=== PATIENT | female | born 1995 | race Caucasian/White ===

== ENCOUNTER 2017-09-29 08:44 | Emergency (ER) | payer OTHER ==
[2017-09-29 09:54] LABS: APPEARANCE,URINE SLIGHTLY-CLOUDY; BILIRUBIN,URINE NEGATIVE (NEGATIVE); GLUCOSE, URINE NEGATIVE (NEGATIVE); KETONES,URINE NEGATIVE (NEGATIVE); LEUKOCYTE ESTERASE,URINE NEGATIVE (NEGATIVE); NITRITE,URINE NEGATIVE (NEGATIVE); PROTEIN,URINE NEGATIVE (NEGATIVE); URINE SPECIFIC GRAVITY 1.025
--- NOTE | 2017-09-29 10:20 | ER Document Report ---
ED GI/ - General Chief Complaint: Abdominal Pain Stated Complaint: ABDOMINAL PAIN AND CRAMPING Time Seen by Provider: 09/29/17 10:09 Mode of Arrival: Ambulatory Information source: Patient TRAVEL OUTSIDE OF THE [place] IN LAST 30 DAYS: No - HPI Patient complains to provider of: Pelvic pain Onset: Other - 2 DAYS Timing/Duration: Intermittent Quality of pain: Cramping Severity at maximum: Mild Severity in ED: Mild Context: Location: Pelvis Vaginal bleeding (Compared to normal period): Spotting Menstrual period history: LMP: 08/24 : 6 Para: 2 Abortions: 3 - Related Data Allergies/Adverse Reactions: Iodinated Contrast- Oral and IV Dye [IV Dye, Iodine Containing] Allergy (Severe , Verified 09/29/17 08:54) Difficulty breathing Shellfish * [Shellfish] Allergy (Severe, Verified 09/29/17 08:54) Difficulty breathing Past Medical History - General Information source: Patient - Social History Smoking Status: Unknown if Ever Smoked Cigarette use (# per day): No Chew tobacco use (# tins/day): No Frequency of alcohol use: None Drug Abuse: None Lives with: Spouse/Significant other Family History: Reviewed & Not Pertinent Patient has suicidal ideation: No Patient has homicidal ideation: No - Medical History Medical History: Negative Renal/ Medical History: Denies: Hx Peritoneal Dialysis Psychiatric Medical History: Reports: None Past Surgical History: Reports: Hx Cholecystectomy Review of Systems - Review of Systems Constitutional: No symptoms reported EENT: No symptoms reported Cardiovascular: No symptoms reported Respiratory: No symptoms reported Gastrointestinal: Nausea. denies: Vomiting Genitourinary: See HPI Female Genitourinary: See HPI Musculoskeletal: No symptoms reported Skin: No symptoms reported Neurological/Psychological: No symptoms reported Physical Exam - Vital signs Vitals: Temp Pulse Resp BP Pulse Ox 98.7 F 96 16 127/65 H 99 09/29/17 08:47 09/29/17 08:47 09/29/17 08:47 09/29/17 08:47 09/29/17 08:47 Interpretation: Normal. No: Tachycardic, Tachypneic - General General appearance: Appears well, Alert In distress: None - HEENT Head: Normocephalic Eyes: Normal Conjunctiva: Normal Ears: Normal Nasal: Normal Mouth/Lips: Normal Mucous membranes: Normal - Respiratory Respiratory status: No respiratory distress - Cardiovascular Rhythm: Regular - Abdominal Inspection: Normal Distension: No distension - Extremities General upper extremity: Normal inspection General lower extremity: Normal inspection. No: Edema - Neurological Neuro grossly intact: Yes Cognition: Normal Orientation: AAOx4 - Psychological Associated symptoms: Normal affect, Normal mood - Skin Skin Temperature: Warm Skin Moisture: Dry Skin Color: Normal Skin Turgor: Elastic Course - Re-evaluation Re-evalutation: 09/29/17 13:32 Patient is subjectively unchanged. Results of laboratory and ultrasound studies discussed with patient. She is to seek routine follow-up in 3-4 days. - Vital Signs Vital signs: Temp Pulse Resp BP Pulse Ox 98.7 F 96 16 127/65 H 99 09/29/17 08:47 09/29/17 08:47 09/29/17 08:47 09/29/17 08:47 09/29/17 08:47 - Laboratory Result Diagrams: 09/29/17 10:19 09/29/17 10:19 Laboratory results interpreted by me: 09/29/17 09/29/17 09/29/17 08:31 10:19 10:19 RDW 14.8 H Chloride 110 H Lipase 22.2 L Beta HCG, Quant 228.36 H Urine Urobilinogen 2.0 H Urine HCG, Qual POSITIVE H Discharge - Discharge Clinical Impression: Threatened miscarriage in early Condition: Stable Disposition: HOME, SELF-CARE Instructions: Threatened Miscarriage ([facility]) Additional Instructions: REST, DRINK PLENTY OF FLUIDS. YOU MAY TAKE TYLENOL FOR PAIN CONTROL IF NEEDED. FOLLOW UP IN 3-4 DAYS FOR REPEAT HCG LEVEL. RETURN TO E.R. IF YOU GET WORSE IN ANY WAY.
[2017-09-29 10:32] LABS: ABSOLUTE EOSINOPHILS # (AUTO) 0.3 10^3/uL (0.0-0.6); ABSOLUTE LYMPHOCYTES (AUTO) 2.2 10^3/uL (0.5-4.7); ABSOLUTE MONOCYTES (AUTO) 0.6 10^3/uL (0.1-1.4); ABSOLUTE NEUT (AUTO) 4.9 10^3/uL (1.7-8.2); BASOPHILS % (AUTO) 0.6 % (0-2); EOSINOPHILS % (AUTO) 3.3 % (0-6); HEMATOCRIT 39.6 % (36.0-47.0); HEMOGLOBIN 13.5 g/dL (12.0-15.5); HGB HCT DIFFERENCE 0.9; LYMPHOCYTES % (AUTO) 27.7 % (13-45); MEAN CORPUSCULAR HEMOGLOBIN 29.3 pg (27.0-33.4); MEAN CORPUSCULAR HGB CONC 34.2 g/dL (32.0-36.0); MEAN CORPUSCULAR VOLUME 86 fl (80-97); RED BLOOD COUNT 4.62 10^6/uL (3.72-5.28); RED CELL DISTRIBUTION WIDTH 14.8 % (11.5-14.0); SEGMENTED NEUTROPHILS % (AUTO) 61.4 % (42-78)
[2017-09-29 10:51] LABS: ALANINE AMINOTRANSFERASE 23 U/L (9-52); ALBUMIN 4.5 g/dL (3.5-5.0); ALKALINE PHOSPHATASE 65 U/L (38-126); ANION GAP 11 (5-19); ASPARTATE AMINO TRANSFERASE 22 U/L (14-36); BILIRUBIN,DIRECT 0.4 mg/dL (0.0-0.4); BILIRUBIN,TOTAL 0.7 mg/dL (0.2-1.3); BLOOD UREA NITROGEN 9 mg/dL (7-20); CALCIUM 9.2 mg/dL (8.4-10.2); CARBON DIOXIDE 23 mmol/L (22-30); CHLORIDE 110 mmol/L (98-107); CREATININE RESULT 0.55 mg/dL (0.52-1.25); GLUCOSE 86 mg/dL (75-110); LIPASE 22.2 U/L (23-300); POTASSIUM 3.8 mmol/L (3.6-5.0); SODIUM 144.2 mmol/L (137-145); TOTAL PROTEIN 7.3 g/dL (6.3-8.2)
--- NOTE | 2017-09-29 12:58 | RADIOLOGY REPORT (SQ) ---
EXAM DESCRIPTION: U/S OB TRANSVAG W/DOPPLER COMPLETED DATE/TIME: 09/29/2017 12:46 pm REASON FOR STUDY: PELVIC PAIN, VAG. BLEEDING, HCG 228. COMPARISON: None. TECHNIQUE: Transvaginal static and realtime grayscale images acquired of the pelvis. Additional edmundo cted spectral and color Doppler images recorded. All images stored on PACs. bHC LIMITATIONS: None. FINDINGS: FETUS: There is no identifiable gestational sac or pole, and of course there is no cardiac motion. UTERUS: 9.9 x 6.2 x 4.9 cm. No masses or anomalies. CERVICAL LENGTH: 3 cm Closed. RIGHT ADNEXA: 3.6 x 2.8 x 2.7 cm with a cyst measuring 3.2 x 1.8 x 1.7 cm. No adnexal free fluid. No adnexal masses. LEFT ADNEXA: 2.8 x 2.3 x 1.4 cm. No adnexal free fluid. No adnexal masses. Trace amount of free fluid. FREE FLUID: None. OTHER: Endometrium measures 18 mm. IMPRESSION: No intrauterine gestation is identified. Follow-up as clinically indicated. TECHNICAL DOCUMENTATION: JOB ID: [id number] [employer]- All Rights Reserved
[2017-09-29 14:03] VITALS: BP 109/59
== END 2017-09-29 14:03 | disposition home or self-care (01) ==
LOC: ER 08:44
DX: O20.0 Threatened abortion (principal); R10.9 Unspecified abdominal pain; R10.2 Pelvic and perineal pain
CPT/HCPCS: 36415; 76817; 80053; 81001; 81025; 83690; 84702; 85025; 93976; 99284

== ENCOUNTER 2018-02-25 19:48 | Outpatient (CLI) | payer OTHER ==
[2018-02-25 20:53] LABS: APPEARANCE,URINE SLIGHTLY-CLOUDY; BILIRUBIN,URINE SMALL (NEGATIVE); GLUCOSE, URINE NEGATIVE (NEGATIVE); KETONES,URINE 20 mg/dL (NEGATIVE); LEUKOCYTE ESTERASE,URINE NEGATIVE (NEGATIVE); NITRITE,URINE NEGATIVE (NEGATIVE); PROTEIN,URINE 30 mg/dL (NEGATIVE); URINE SPECIFIC GRAVITY 1.028
[2018-02-25 20:56] LABS: COLOR,URINE YELLOW
[2018-02-25 21:22] LABS: URINE AMPHETAMINES SCREEN NEGATIVE; URINE BENZODIAZEPINES SCREEN NEGATIVE; URINE COCAINE SCREEN NEGATIVE; URINE MARIJUANA (THC) SCREEN NEGATIVE; URINE METHADONE SCREEN NEGATIVE; URINE PHENCYCLIDINE SCREEN NEGATIVE
[2018-02-25 21:39] LABS: URINE BARBITURATES SCREEN UNCONFIRMED POSITIVE
[2018-02-25] MEDS ORDERED: RINGERS SOLUTION,LACTATED 1,000 ML IV PRN (21:49)
--- NOTE | 2018-02-25 23:37 | RADIOLOGY REPORT (SQ) ---
EXAM DESCRIPTION: U/S OB 14+ TA/1 GEST W/DOPPLER CLINICAL HISTORY: 22 years, Female, vaginal bleeding and contractions COMPARISON: 09.29.17 LIMITATIONS: None. FINDINGS: Based on US biometrics, EGA is 27w2d with PADMA of 05/25/18. EFW is 1082g at 78% (Luis) Cardiac activity: 163-bpm. DIANA: 22.0-cm Placenta: Anterior. No evidence of abruption. No placenta previa. Presentation: Vertex Cervical length: 3.2-cm Anatomic survey: No significant abnormality including visualization of a four chambered heart, three-vessel cord, cord insertion, kidneys, bladder, stomach, spine, intracranial structures, and upper/lower extremities. IMPRESSION: 1. Live fetus at 27w2d. 2. DIANA is 22.0-cm at the higher end of normal; 2 week ultrasound surveillance recommended. 3. Normal anatomic survey.
== END 2018-02-25 23:39 | disposition home or self-care (01) ==
LOC: LC 19:48
PROVIDERS: ATTEND Obstetrics & Gynecology
PROC: 4A1HXCZ Monitoring of Products of Conception, Cardiac Rate, External Approach (ICD-10-PCS; principal; 2018-02-25)
DX: O47.02 False labor before 37 completed weeks of gestation, second trimester (principal); O46.92 Antepartum hemorrhage, unspecified, second trimester; Z3A.27 27 weeks gestation of pregnancy
CPT/HCPCS: 76805; 80307; 81001; 93976

== ENCOUNTER 2018-03-29 19:37 | Emergency (ER) | payer OTHER ==
--- NOTE | 2018-03-29 21:04 | ER Document Report ---
ED General - General Chief Complaint: Chest Pain Stated Complaint: CHEST PAIN Time Seen by Provider: 03/29/18 20:57 Notes: Patient is a 22-year-old female, 30 weeks , started with right upper chest wall and shoulder pain that started after she woke up from sleeping. Pain worsen when she started to have contractions earlier today. She went to OB and was sent to the ER for further evaluation of her chest pain. She denies leakage of fluids, shortness of breath, increased leg swelling, injury, hemoptysis, syncope or fevers. TRAVEL OUTSIDE OF THE [place] IN LAST 30 DAYS: No - Related Data Allergies/Adverse Reactions: Iodinated Contrast- Oral and IV Dye [IV Dye, Iodine Containing] Allergy (Severe , Verified 02/25/18 21:51) Difficulty breathing Shellfish * [Shellfish] Allergy (Severe, Verified 02/25/18 21:51) Difficulty breathing Past Medical History - General Information source: Patient - Social History Smoking Status: Unknown if Ever Smoked Family History: Reviewed & Not Pertinent Patient has suicidal ideation: No Patient has homicidal ideation: No Renal/ Medical History: Denies: Hx Peritoneal Dialysis Past Surgical History: Reports: Hx Cholecystectomy Review of Systems - Review of Systems Notes: REVIEW OF SYSTEMS: CONSTITUTIONAL: -fevers, -chills EENT: -eye pain, -difficulty swallowing, -nasal congestion CARDIOVASCULAR: +right upper chest pain, -syncope. RESPIRATORY: -cough, -SOB GASTROINTESTINAL: -abdominal pain, -nausea, -vomiting, -diarrhea GENITOURINARY: -dysuria, -hematuria MUSCULOSKELETAL: +right shoulder pain, -back pain, -neck pain SKIN: -rash or skin lesions. HEMATOLOGIC: -easy bruising or bleeding. LYMPHATIC: -swollen, enlarged glands. NEUROLOGICAL: -altered mental status or loss of consciousness, -headache, - neurologic symptoms PSYCHIATRIC: -anxiety, -depression. ALL OTHER SYSTEMS REVIEWED AND NEGATIVE. Physical Exam - Vital signs Vitals: Temp Pulse Resp BP Pulse Ox 99.7 F 108 H 18 111/63 97 03/29/18 20:11 03/29/18 20:11 03/29/18 20:11 03/29/18 20:11 03/29/18 20:11 - Notes Notes: PHYSICAL EXAMINATION: GENERAL: Well-appearing, well-nourished and in no acute distress. HEAD: Atraumatic, normocephalic. EYES: Pupils equal round and reactive to light, extraocular movements intact, sclera anicteric, conjunctiva are normal. ENT: nares patent, oropharynx clear without exudates. Moist mucous membranes. NECK: Normal range of motion, supple without lymphadenopathy LUNGS: Breath sounds clear to auscultation bilaterally and equal. No wheezes rales or rhonchi. HEART: Regular rhythm, mild tachycardia. CHEST WALL: Tenderness over right upper chest wall and upper right trapezius. ABDOMEN: Soft, nontender, normoactive bowel sounds. Gravid uterus. No guarding, no rebound. No masses appreciated. EXTREMITIES: Normal range of motion, no pitting or edema. No cyanosis. NEUROLOGICAL: Cranial nerves grossly intact. Normal speech, normal gait. Normal sensory and motor exams. PSYCH: Normal mood, normal affect. SKIN: Warm, Dry, normal turgor, no rashes or lesions noted. Course - Re-evaluation Re-evalutation: Patient appears very well. Her EKG does not show any acute ischemic changes and her mild tachycardia resolved after drinking fluids. Chest pain is worse with palpation and shoulder movement and is also exacerbated when she has her contractions. Chest x-ray also does not show any acute abnormalities. Patient' s HEART score is 0. Considered PE, but very unlikely without shortness of breath or hypoxia. Instructed patient to continue to stay hydrated and Tylenol for any pain. She will be discharged to go upstairs to L&D for monitoring. - Vital Signs Vital signs: Temp Pulse Resp BP Pulse Ox 99.7 F 108 H 18 111/63 97 03/29/18 20:11 03/29/18 20:11 03/29/18 20:11 03/29/18 20:11 03/29/18 20:11 - Diagnostic Test Radiology reviewed: Image reviewed, Reports reviewed Radiology results interpreted by me: CXR: NAD - EKG Interpretation by Me EKG shows normal: Sinus rhythm, [place], Intervals, QRS Complexes, ST-T Waves Rate: Tachycardia Discharge - Discharge Clinical Impression: Chest pain Qualifiers: Chest pain type: unspecified Qualified Code(s): R07.9 - Chest pain, unspecified Condition: Stable Additional Instructions: CHEST PAIN OF UNCLEAR CAUSE: The exact cause of your chest pain isn't clear. Fortunately, there is no evidence of a dangerous medical condition. Further testing may be required to find the source of the pain. Most often, we find that this pain is coming from the chest wall -- the muscles or rib joints in the chest. But chest pain can come from the lung and lung lining, the esophagus, the heart valves or heart lining, and even the stomach or gallbladder. Rest. Eat lightly until the pain is gone. We may prescribe medicine for pain and inflammation. You should call the physician immediately if the pain radiates to the shoulder, jaw or arms; if you start to run a fever or develop a cough; or if you develop shortness of breath, or other new or alarming symptoms. NORMAL EXAM AND WORKUP: At this time, your examination and workup show no significant abnormality. No significant abnormal physical findings were noted. All laboratory, EKG, and imaging (x-ray, CT scans, ultrasound) studies that were ordered show no significant abnormality. Although your examination and all studies that were ordered showed no significant abnormal finding, there are no examinations and no studies that are 100% accurate. There is always the possibility that some abnormality could exist and not be detected with physical examination or within the limits and capabilities of laboratory and other studies. You should return or follow up as you were instructed on your visit today for further evaluation if your symptoms do not resolve. CHEST WALL PAIN: Your chest pain may be coming from the chest wall. This is often caused by straining the muscles or joints in the chest during physical activity, direct trauma, coughing, or vigorous vomiting. Persons with arthritis are especially prone to this type of pain, due to inflammation of the cartilage joints near the breast bone. Occasionally, no cause can be found. Rest from strenuous physical activity. This kind of chest pain is usually made worse by movement of the chest. Depending on the symptoms, we may prescribe medicine for pain, muscle relaxation, and antiinflammatory effects. If the pain is new, and seems to be due to muscle strain, cold packs can help. Otherwise, apply gentle warmth to the painful area for 15 minutes every hour or two. You should call contact the doctor immediately if things change. Further evaluation is needed if you develop a fever or cough, if the nature of the pain changes, or if you become short of breath. FOLLOW-UP CARE: If you have been referred to a physician for follow-up care, call the physician s office for an appointment as you were instructed or within the next two days. If you experience worsening or a significant change in your symptoms, notify the physician immediately or return to the Emergency Department at any time for re-evaluation. Referrals: KULDIP ALLISON MD [Primary Care Provider] - Follow up as needed
--- NOTE | 2018-03-29 21:50 | RADIOLOGY REPORT (SQ) ---
EXAM DESCRIPTION: CHEST 2 VIEWS COMPLETED DATE/TIME: 03/29/2018 9:30 pm REASON FOR STUDY: chest pain COMPARISON: None. EXAM PARAMETERS: NUMBER OF VIEWS: two views TECHNIQUE: Digital Frontal and Lateral radiographic views of the chest acquired. RADIATION DOSE: NA LIMITATIONS: none FINDINGS: LUNGS AND PLEURA: No opacities, masses or pneumothorax. No pleural effusion. MEDIASTINUM AND HILAR STRUCTURES: No masses or contour abnormalities. HEART AND VASCULAR STRUCTURES: Heart normal size. No evidence for failure. BONES: No acute findings. HARDWARE: None in the chest. OTHER: No other significant finding. IMPRESSION: NO ACUTE RADIOGRAPHIC FINDING IN THE CHEST. TECHNICAL DOCUMENTATION: JOB ID: [id number] [employer]- All Rights Reserved Reading location - IP/workstation name: [email or web address]
[2018-03-29 22:28] VITALS: BP 107/53
--- NOTE | 2018-03-29 23:26 | EKG REPORT ---
SEVERITY:- OTHERWISE NORMAL ECG - SINUS TACHYCARDIA : Confirmed by: Louis Fisher MD 29-Mar-2018 23:25:17
== END 2018-03-29 22:30 | disposition admitted as inpatient to this hospital (09) ==
LOC: ER 19:37 → EDSTATUS 19:37 → ER 22:30
DX: O26.93 Pregnancy related conditions, unspecified, third trimester (principal); R07.9 Chest pain, unspecified; R00.0 Tachycardia, unspecified; Z3A.30 30 weeks gestation of pregnancy; Z91.013 Allergy to seafood; Z90.49 Acquired absence of other specified parts of digestive tract
CPT/HCPCS: 71046; 93005; 93010; 99285

== ENCOUNTER 2018-03-31 16:04 | Outpatient (CLI) | payer OTHER ==
[2018-03-31 16:55] LABS: AMORPHOUS SEDIMENT,URINE TRACE /HPF; APPEARANCE,URINE CLOUDY; BILIRUBIN,URINE NEGATIVE (NEGATIVE); COLOR,URINE AMBER; GLUCOSE, URINE NEGATIVE (NEGATIVE); KETONES,URINE NEGATIVE (NEGATIVE); LEUKOCYTE ESTERASE,URINE NEGATIVE (NEGATIVE); NITRITE,URINE NEGATIVE (NEGATIVE); PROTEIN,URINE NEGATIVE (NEGATIVE); URINE SPECIFIC GRAVITY 1.021
[2018-03-31 17:15] LABS: RBCS (WET MOUNT) FEW RBCS SEEN; T.VAGINALIS (WET MOUNT) NO TRICHOMONAS SEEN; WBCS (WET MOUNT) NO WBCS SEEN; YEAST (WET MOUNT) NO YEAST SEEN
[2018-03-31 17:16] LABS: URINE AMPHETAMINES SCREEN NEGATIVE; URINE BENZODIAZEPINES SCREEN NEGATIVE; URINE COCAINE SCREEN NEGATIVE; URINE METHADONE SCREEN NEGATIVE; URINE PHENCYCLIDINE SCREEN NEGATIVE
[2018-03-31 17:17] LABS: URINE MARIJUANA (THC) SCREEN NEGATIVE
[2018-03-31 17:29] LABS: URINE BARBITURATES SCREEN UNCONFIRMED POSITIVE
[2018-03-31 18:42] LABS: CHLAM PCR NOT DETECTED (NOT DETECT); GON PCR NOT DETECTED (NOT DETECT)
--- NOTE | 2018-03-31 18:56 | RADIOLOGY REPORT (SQ) ---
EXAM DESCRIPTION: U/S OB LIMITED COMPLETED DATE/TIME: 03/31/2018 6:47 pm REASON FOR STUDY: IUP @ 30wga with spotting and abdominal cramping COMPARISON: None. TECHNIQUE: Limited transvaginal and transabdominal grayscale ultrasound for evaluation of specific r equested obstetrical parameters. LIMITATIONS: None. FINDINGS: CERVICAL LENGTH: 3.6 cm. Closed. DIANA: 15.3 cm. FHR: 127 beats per minute. PRESENTATION: Cephalic. PLACENTA: Anterior. OTHER: No other significant findings. IMPRESSION: LIMITED OBSTETRICAL ULTRASOUND WITH MEASURED PARAMETERS DELINEATED ABOVE. Trimester of : Third trimester - 28 weeks to delivery. TECHNICAL DOCUMENTATION: JOB ID: [id number] [employer]- All Rights Reserved Reading location - IP/workstation name: [email or web address]
== END 2018-03-31 19:04 | disposition home or self-care (01) ==
LOC: LC 16:04
PROVIDERS: ATTEND Obstetrics & Gynecology
PROC: 4A1HXCZ Monitoring of Products of Conception, Cardiac Rate, External Approach (ICD-10-PCS; principal; 2018-03-31)
DX: O26.893 Other specified pregnancy related conditions, third trimester (principal); E86.0 Dehydration; Z3A.30 30 weeks gestation of pregnancy
CPT/HCPCS: 76815; 80307; 81001; 87210; 87491; 87591

== ENCOUNTER 2018-04-12 11:02 | Emergency (ER) | payer OTHER ==
--- NOTE | 2018-04-12 11:30 | ER Document Report ---
ED General - General Chief Complaint: Chest Pressure Stated Complaint: CHEST PAIN Time Seen by Provider: 04/12/18 11:08 Mode of Arrival: Medic Information source: Patient Notes: 22-year-old female 7 para 2 who is approximately 32 weeks presents with complaints of intermittent palpitations. Patient notes this is been going on for a few weeks now denies any fevers or chills notes chest pain on the right anterior chest which resolves with pressure. She denies any shortness of breath associated with this. Patient was seen by her FARROWING MANAGER was a concern for possible murmur, patient denies ever being told she had a murmur before. She denies any IV drug use. Patient states his palpitations will come on for about 20 minutes at a time and then resolve and happens approximately 2- 3 times a day Currently patient is completely asymptomatic has no concerns She does note abdominal contractions which have been ongoing now for 12 weeks, she states she does not wish to be evaluated for this TRAVEL OUTSIDE OF THE [place] IN LAST 30 DAYS: No - HPI Onset: Other - 2 week duration Onset/Duration: Intermittent Quality of pain: Pressure Severity: Mild Pain Level: 1 Associated symptoms: Other - Palpitations Exacerbated by: Denies Relieved by: Denies Similar symptoms previously: Yes Recently seen / treated by doctor: Yes - Related Data Allergies/Adverse Reactions: Iodinated Contrast- Oral and IV Dye [IV Dye, Iodine Containing] Allergy (Severe , Verified 03/31/18 16:12) Difficulty breathing Shellfish * [Shellfish] Allergy (Severe, Verified 03/31/18 16:12) Difficulty breathing Past Medical History - Social History Smoking Status: Never Smoker Cigarette use (# per day): No Chew tobacco use (# tins/day): No Smoking Education Provided: No Family History: Reviewed & Not Pertinent Renal/ Medical History: Denies: Hx Peritoneal Dialysis Past Surgical History: Reports: Hx Cholecystectomy Review of Systems - Review of Systems Notes: REVIEW OF SYSTEMS: CONSTITUTIONAL : Denies fever, chills, or sweats. Denies recent illness. EENT: Denies eye, ear, throat, or mouth pain or symptoms. Denies nasal or sinus congestion or discharge. Denies throat, tongue, or mouth swelling or difficulty swallowing. CARDIOVASCULAR: Admits intermittent right-sided chest pressure palpitations RESPIRATORY: Denies cough, cold, or chest congestion. Denies shortness of breath, difficulty breathing, or wheezing. GASTROINTESTINAL: Denies abdominal pain or distention. Denies nausea, vomiting , or diarrhea. Denies blood in vomitus, stools, or per rectum. Denies black, tarry stools. Denies constipation. GENITOURINARY: Denies difficulty urinating, painful urination, burning, frequency, blood in urine, or discharge. FEMALE GENITOURINARY: Denies vaginal bleeding, heavy or abnormal periods, irregular periods. Denies vaginal discharge or odor. MUSCULOSKELETAL: Denies back or neck pain or stiffness. Denies joint pain or swelling. SKIN: Denies rash, lesions or sores. HEMATOLOGIC : Denies easy bruising or bleeding. LYMPHATIC: Denies swollen, enlarged glands. NEUROLOGICAL: Denies confusion or altered mental status. Denies passing out or loss of consciousness. Denies dizziness or lightheadedness. Denies headache. Denies weakness or paralysis or loss of use of either side. Denies problems with gait or speech. Denies sensory loss, numbness, or tingling. Denies seizures. PSYCHIATRIC: Denies anxiety or stress. Denies depression, suicidal ideation, or homicidal ideation. ALL OTHER SYSTEMS REVIEWED AND NEGATIVE. PHYSICAL EXAMINATION: GENERAL: Well-appearing, well-nourished and in no acute distress. HEAD: Atraumatic, normocephalic. EYES: Pupils equal round and reactive to light, extraocular movements intact, conjunctiva are normal. ENT: Nares patent, oropharynx clear without exudates. Moist mucous membranes. NECK: Normal range of motion, supple without lymphadenopathy LUNGS: Breath sounds clear to auscultation bilaterally and equal. No wheezes rales or rhonchi. HEART: Regular rate and rhythm without murmurs ABDOMEN: Soft, gravid abdomen. No guarding, no rebound. No masses appreciated. Female : deferred Musculoskeletal: Normal range of motion, no pitting or edema. No cyanosis. NEUROLOGICAL: Cranial nerves grossly intact. Normal speech, normal gait. Normal sensory, motor exams PSYCH: Normal mood, normal affect. SKIN: Warm, Dry, normal turgor, no rashes or lesions noted. Dictation was performed using [employer] voice recognition software Physical Exam - Vital signs Vitals: Resp 18 04/12/18 11:02 Course - Re-evaluation Re-evalutation: 04/12/18 11:48 Currently patient's examination is completely benign heart rate is 93 in the room she satting 100% on room air, she looks well is in no distress, we did discuss possibilities of palpitations we discussed concerns for pulmonary emboli 04/12/18 15:53 Patient refuses to be seen by FARROWING MANAGER today, I will discharge her to follow-up with cardiology for a environmental monitoring technician After performing a Medical Screening Examination, I estimate there is LOW risk for RUPTURED ESOPHAGUS, PNEUMOTHORAX, PULMONARY EMBOLISM, ACUTE CORONARY SYNDROME, OR THORACIC AORTIC DISSECTION, thus I consider the discharge disposition reasonable. I have reevaluated this patient multiple times and no significant life threatening changes are noted. The patient and I have discussed the diagnosis and risks, and we agree with discharging home with close follow-up. We also discussed returning to the Emergency Department immediately if new or worsening symptoms occur. We have discussed the symptoms which are most concerning (e.g., bloody sputum, worsening pain or shortness of breath) that necessitate immediate return. - Vital Signs Vital signs: Temp Pulse Resp BP Pulse Ox 98.6 F 103 H 21 H 107/57 L 99 04/12/18 13:09 04/12/18 11:08 04/12/18 13:09 04/12/18 13:09 04/12/18 13:09 - Laboratory Result Diagrams: 04/12/18 10:35 04/12/18 10:35 Laboratory results interpreted by me: 04/12/18 04/12/18 10:35 10:35 WBC 11.8 H Hgb 10.4 L Hct 30.8 L Absolute Neutrophils 8.9 H Chloride 110 H Carbon Dioxide 20 L Total Protein 6.2 L Albumin 3.3 L Discharge - Discharge Clinical Impression: Heart palpitations Condition: Stable Disposition: HOME, SELF-CARE Instructions: Palpitations (Irregular or Rapid Heartrate) ([facility]) Referrals: ANNA CHAMBERLAIN MD [ACTIVE STAFF] - Follow up as needed CHAD LEAL MD [ACTIVE STAFF] - Follow up tomorrow
[2018-04-12 11:57] LABS: ABSOLUTE EOSINOPHILS # (AUTO) 0.2 10^3/uL (0.0-0.6); ABSOLUTE MONOCYTES (AUTO) 0.7 10^3/uL (0.1-1.4); ABSOLUTE NEUT (AUTO) 8.9 10^3/uL (1.7-8.2); BASOPHILS % (AUTO) 0.3 % (0-2); EOSINOPHILS % (AUTO) 1.4 % (0-6); HEMATOCRIT 30.8 % (36.0-47.0); HEMOGLOBIN 10.4 g/dL (12.0-15.5); LYMPHOCYTES % (AUTO) 16.7 % (13-45); MEAN CORPUSCULAR HEMOGLOBIN 27.4 pg (27.0-33.4); MEAN CORPUSCULAR HGB CONC 33.7 g/dL (32.0-36.0); MEAN CORPUSCULAR VOLUME 81 fl (80-97); MONOCYTES % (AUTO) 6.4 % (3-13); PLATELET COUNT 329 10^3/uL (150-450); RED CELL DISTRIBUTION WIDTH 13.4 % (11.5-14.0); SEGMENTED NEUTROPHILS % (AUTO) 75.2 % (42-78); TOTAL CELLS COUNTED % (AUTO) 100 %; WHITE BLOOD COUNT 11.8 10^3/uL (4.0-10.5)
[2018-04-12 12:09] LABS: ALANINE AMINOTRANSFERASE 15 U/L (9-52); ALBUMIN 3.3 g/dL (3.5-5.0); ALKALINE PHOSPHATASE 110 U/L (38-126); ANION GAP 12 (5-19); ASPARTATE AMINO TRANSFERASE 16 U/L (14-36); BILIRUBIN,DIRECT 0.2 mg/dL (0.0-0.4); BILIRUBIN,TOTAL 0.2 mg/dL (0.2-1.3); BLOOD UREA NITROGEN 7 mg/dL (7-20); CALCIUM 9.3 mg/dL (8.4-10.2); CARBON DIOXIDE 20 mmol/L (22-30); CHLORIDE 110 mmol/L (98-107); GLUCOSE 106 mg/dL (75-110); SODIUM 141.5 mmol/L (137-145); TOTAL PROTEIN 6.2 g/dL (6.3-8.2)
[2018-04-12 13:21] VITALS: BP 107/57
--- NOTE | 2018-04-13 07:39 | EKG REPORT ---
SEVERITY:- OTHERWISE NORMAL ECG - SINUS TACHYCARDIA : Confirmed by: Louis Fisher MD 13-Apr-2018 07:38:57
== END 2018-04-12 13:24 | disposition home or self-care (01) ==
LOC: ER 11:02
DX: O26.899 Other specified pregnancy related conditions, unspecified trimester (principal); R00.2 Palpitations; R07.89 Other chest pain; Z3A.00 Weeks of gestation of pregnancy not specified; Z91.041 Radiographic dye allergy status; Z91.013 Allergy to seafood
CPT/HCPCS: 36415; 80053; 84443; 85025; 93005; 93010; 99285

== ENCOUNTER 2018-04-15 12:36 | Outpatient (CLI) | payer OTHER ==
[2018-04-15 13:38] LABS: AMNISURE (ROM) NEGATIVE (NEGATIVE)
[2018-04-15 13:44] LABS: APPEARANCE,URINE CLEAR; BILIRUBIN,URINE NEGATIVE (NEGATIVE); GLUCOSE, URINE NEGATIVE (NEGATIVE); KETONES,URINE NEGATIVE (NEGATIVE); LEUKOCYTE ESTERASE,URINE NEGATIVE (NEGATIVE); NITRITE,URINE NEGATIVE (NEGATIVE); PROTEIN,URINE NEGATIVE (NEGATIVE)
[2018-04-15 13:48] LABS: COLOR,URINE DARK YELLOW
[2018-04-15 14:08] LABS: URINE AMPHETAMINES SCREEN NEGATIVE; URINE BARBITURATES SCREEN NEGATIVE; URINE BENZODIAZEPINES SCREEN NEGATIVE; URINE COCAINE SCREEN NEGATIVE; URINE MARIJUANA (THC) SCREEN NEGATIVE; URINE METHADONE SCREEN NEGATIVE; URINE PHENCYCLIDINE SCREEN NEGATIVE
--- NOTE | 2018-04-15 14:20 | Non Stress Test Report ---
Non Stress Test Datetime Report Generated by CPN: 04/15/2018 14:20 DEMOGRAPHIC EGA NST: 32.3 INDICATION Indication for Study: Ordered by Provider MONITORING Monitor Explained: Monitor Explained; Test Explained; Patient Verbalized Understanding Time on Monitor: 04/15/2018 13:06 Time off Monitor: 04/15/2018 14:13 NST Duration: 67 NST INTERVENTIONS NST Interventions: PO Hydration; Reposition Patient Physician Notified NST: Dr. Bocanegra BABY A: [id number] BABY A Movement : Present Contraction Frequency : 0/pt denies FHR Baseline : 145 Accelerations : 15X15 Decelerations : None Variability : Moderate 6-25bpm NST Review: Meets Criteria for Reactive NST NST Review and Verified By : MAGALY DUARTE Results: Reactive NST REPORT Report Trigger: Send Report
== END 2018-04-15 14:31 | disposition home or self-care (01) ==
LOC: LC 12:36
PROVIDERS: ATTEND Student in an Organized Health Care Education/Training Program
PROC: 4A1HXCZ Monitoring of Products of Conception, Cardiac Rate, External Approach (ICD-10-PCS; principal; 2018-04-15)
DX: O47.03 False labor before 37 completed weeks of gestation, third trimester (principal); Z3A.32 32 weeks gestation of pregnancy
CPT/HCPCS: 59025; 80307; 81005; 84112

== ENCOUNTER → 2018-05-08 | Outpatient (CLI) | payer OTHER ==
[2018-05-08 18:15] LABS: ALANINE AMINOTRANSFERASE 20 U/L (9-52); ALBUMIN 3.3 g/dL (3.5-5.0); ALKALINE PHOSPHATASE 141 U/L (38-126); ASPARTATE AMINO TRANSFERASE 17 U/L (14-36); BILIRUBIN,DIRECT 0.4 mg/dL (0.0-0.4); BILIRUBIN,TOTAL 0.4 mg/dL (0.2-1.3); TOTAL PROTEIN 5.9 g/dL (6.3-8.2)
== END ==
LOC: OD 16:47
PROVIDERS: ATTEND Midwife
DX: Z34.83 Encounter for supervision of other normal pregnancy, third trimester (principal); L29.9 Pruritus, unspecified
CPT/HCPCS: 36415; 80076; 82239

== ENCOUNTER 2018-05-11 22:39 | Inpatient (IN) | payer OTHER ==
[2018-05-11] MEDS ORDERED: PENICILLIN G POTASSIUM 5,000,000 UNIT in DEXTROSE 5%-WATER 100 ML IV ONE (22:44)
[2018-05-11] MEDS ORDERED: RINGERS SOLUTION,LACTATED 1,000 ML IV PRN (22:44)
[2018-05-11] MEDS ORDERED: RINGERS SOLUTION,LACTATED 1,000 ML IV ONE (22:44)
[2018-05-11] MEDS ORDERED: OXYTOCIN/NORMAL SALINE 20 UNIT/1,000 ML RTUINJ ONE (22:47)
[2018-05-11] MEDS ORDERED: PENICILLIN G-K 5 MILLION UNIT VIAL ONE (22:47)
[2018-05-11] MEDS ORDERED: LIDOCAINE 1% INJ-PF (10 MG/ML) 30 ML SDV ONE (22:47)
[2018-05-11] MEDS ORDERED: MISOPROSTOL 0.2 MG TABLET ONE (22:47)
[2018-05-11 23:31] LABS: APPEARANCE,URINE SLIGHTLY-CLOUDY; BILIRUBIN,URINE NEGATIVE (NEGATIVE); CALCIUM OXALATE CRYSTALS,URINE TOO NUMEROUS TO CNT /HPF; COLOR,URINE YELLOW; GLUCOSE, URINE NEGATIVE (NEGATIVE); KETONES,URINE NEGATIVE (NEGATIVE); LEUKOCYTE ESTERASE,URINE TRACE (NEGATIVE); NITRITE,URINE NEGATIVE (NEGATIVE); PROTEIN,URINE NEGATIVE (NEGATIVE); URINE SPECIFIC GRAVITY 1.017
[2018-05-11 23:54] LABS: ABSOLUTE EOSINOPHILS # (AUTO) 0.1 10^3/uL (0.0-0.6); ABSOLUTE LYMPHOCYTES (AUTO) 2.8 10^3/uL (0.5-4.7); ABSOLUTE MONOCYTES (AUTO) 1.1 10^3/uL (0.1-1.4); ABSOLUTE NEUT (AUTO) 10.8 10^3/uL (1.7-8.2); BASOPHILS % (AUTO) 0.3 % (0-2); EOSINOPHILS % (AUTO) 0.9 % (0-6); HEMATOCRIT 30.1 % (36.0-47.0); LYMPHOCYTES % (AUTO) 18.8 % (13-45); MEAN CORPUSCULAR HEMOGLOBIN 25.4 pg (27.0-33.4); MEAN CORPUSCULAR HGB CONC 33.1 g/dL (32.0-36.0); MONOCYTES % (AUTO) 7.2 % (3-13); PLATELET COUNT 348 10^3/uL (150-450); RED BLOOD COUNT 3.92 10^6/uL (3.72-5.28); RED CELL DISTRIBUTION WIDTH 14.3 % (11.5-14.0); SEGMENTED NEUTROPHILS % (AUTO) 72.8 % (42-78); TOTAL CELLS COUNTED % (AUTO) 100 %; WHITE BLOOD COUNT 14.8 10^3/uL (4.0-10.5)
[2018-05-11 23:57] LABS: MEAN CORPUSCULAR VOLUME 77 fl (80-97)
[2018-05-12 00:11] LABS: URINE AMPHETAMINES SCREEN NEGATIVE; URINE BARBITURATES SCREEN NEGATIVE; URINE BENZODIAZEPINES SCREEN NEGATIVE; URINE COCAINE SCREEN NEGATIVE; URINE MARIJUANA (THC) SCREEN NEGATIVE; URINE METHADONE SCREEN NEGATIVE; URINE PHENCYCLIDINE SCREEN NEGATIVE
[2018-05-12] MEDS ORDERED: PENICILLIN G-K 5 MILLION UNIT VIAL ONE ×5 (01:24→18:43)
[2018-05-12 01:53] LABS: CHLAM PCR NOT DETECTED (NOT DETECT); GON PCR NOT DETECTED (NOT DETECT)
[2018-05-12] MEDS: PENICILLIN G POTASSIUM 2,500,000 UNIT in DEXTROSE 5%-WATER 50 ML IV SCH ×5 (02:53→18:49)
--- NOTE | 2018-05-12 07:01 | Admission Physical ---
Datetime Report Generated by CPN: 05/12/2018 07:01 CURRENT ADMISSION Chief Complaint: Uterine Contractions Indication for Induction: Not Applicable Admit Impression : , Intrauterine ; Active Labor Admit Plan: Admit to Unit; Initiate Labor Protocol ALLERGIES Medication Allergies: Yes Medication Allergies: Iodinated Contrast- Oral and IV Dye/SV/Difficulty yoly (05/11/2018); Shellfish */SV/Difficulty yoly (05/11/2018) Latex: No Latex Allergies Food Allergies: none Environmental Allergies: none OBSTETRICAL HISTORY EDC: 06/07/2018 00:00 : 6 Para: 2 Term: 2 : 0 SAB: 3 IAB: 0 Ectopic: 0 Livin Cesareans: 0 VBACs: 0 Multiple Births: 0 Gestational Diabetes: No Rh Sensitization: No Incompetent Cervix: No KESHAWN: No Infertility: No ART Treatment: No Uterine Anomaly: No IUGR: No Hx Previous C/S: No Macrosomia: No Hx Loss/Stillborn: No PIH: No Hx : No Placenta Previa/Abruption: No Depression/PP Depression: Yes PTL/PROM: No Post Hemorrhage: No Current Procedures: Ultrasound Obstetrical History Comments: G1: 08/2014 male 6 pounds 2 ounces 40.0 G2: 2014 SAB G3: 07/2016 male 9 pounds 0 ounces 40.1 G4: 12/2016 SAB 5-6 weeks G5: 07/2017 SAB 5-6 weeks G6: Current SEE RECORDS Alcohol: No Marijuana : No Cocaine: No Other Illicit Drugs: No Cigarettes: Current Everyday Smoker. 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 Surgery: No Heart Disease: No Hosp/Surgery: Yes Autoimmune Disorder: No Anesthetic Complications: No Kidney Disease: No Abnormal Pap Smear: No Neuro/Epilepsy: No Psychiatric Disorders: No Other Medical Diseases: No Hepatitis/Liver Disease: No Significant Family History: No Varicosities/Phlebitis: No Trauma/Violence : No Thyroid Dysfunction: No Medical History Comments: lap carly, chronic depression, childbirth INFECTIOUS HISTORY Gonorrhea: No Genital Herpes: No Chlamydia: No Tuberculosis: No Syphilis: No Hepatitis: No HIV/AIDS Exposure: No Rash or Viral Illness: No HPV: No PHYSICAL EXAM General: Normal HEENT: Normal Neurologic: Normal Thyroid: Normal Heart: Normal Lungs: Normal Breast: Normal Back: Normal Abdomen: Normal Genitourinary Exam: Normal Extremities: Normal DTRs: Normal Pelvic Type: Adequate Vital Signs: Reviewed VAGINAL EXAM Dilatation: 6 Effacement: 75 Station: -2 MEMBRANES Pooling: Negative Membranes: Intact FETUS A EGA: 36.2 Monitoring: External US FHR- Baseline: 140 Variability: Moderate 6-25bpm Accelerations: 15X15 Decelerations: None FHR Category: Category I Estimated Weight (gm): 3100 Presentation: Vertex PLANS FOR LABOR AND DELIVERY Labor and Delivery: None Pain Management: None Feeding Preference: Breast Benefit of Breast Feed Discussed: Yes Circumcision: N/A INFORMED CONSENT Signature: with User ID: [email or web address]
--- NOTE | 2018-05-12 09:07 | L&D Progress Notes ---
PROGRESS NOTES Datetime Report Generated by CPN: 05/12/2018 09:07 PROGRESS NOTE Impression: Normal Progression of Labor; Reassuring Heart Rate Plan: Continue Present Management Informed Consent Obtained: Vaginal Delivery Vital Signs : Reviewed; Within Normal Limits Comment: Cat 1 strip, irregular uc's, pt not feeling uc's, hsb at BS, does not want epidural Will AROM later VAGINAL EXAM Dilatation: 6 Effacement: 75 Station: -2 MEMBRANES Pooling: Negative Membranes: Intact FETUS A : 36.2 Estimated Weight (gm): 3100 Presentation: Vertex SIGNATURE SIGNATURE: [id number] SIGNATURE: [id number] SIGNATURE: ,[id number] Assignment: Fabian Kerns MD Signature: with User ID: [email or web address] : with User ID: [email or web address]
--- NOTE | 2018-05-12 11:03 | L&D Progress Notes ---
PROGRESS NOTES Datetime Report Generated by CPN: 05/12/2018 11:03 PROGRESS NOTE Impression: Reassuring Heart Rate Plan: Continue Present Management Vital Signs : Reviewed; Within Normal Limits Comment: Cat 1 strip, irregular uc's, mild, tolerating well FETUS A Monitoring: External US Decelerations: None FETUS C SIGNATURE: [id number];[id number];10,[id number] Assignment: Fabian Kerns MD Signature: with User ID: [email or web address] : with User ID: [email or web address]
--- NOTE | 2018-05-12 11:38 | L&D Progress Notes ---
PROGRESS NOTES Datetime Report Generated by CPN: 05/12/2018 11:38 PROGRESS NOTE Impression: Normal Progression of Labor; Reassuring Heart Rate Procedures: Artificial ROM; Scalp Electrode; Sterile Vag Exam Plan: Continue Present Management; Anticipate Vaginal Delivery Informed Consent Obtained: Vaginal Delivery Vital Signs : Reviewed; Within Normal Limits Comment: VE 8/80/vtx/-1, FSE applied to slowly drain fluid, fingers felt and then hand , pushing back in, rechecked by Dr. Kerns, no cord, no hand, AROM with amni hook, clear fluid, Cat 1 strip, irreg uc's Monitor and anticipate FETUS A Monitoring: External US Variability: Moderate 6-25bpm Accelerations: 15X15 Decelerations: None FETUS C SIGNATURE: [id number];[id number];[id number] Assignment: Fabian Kerns MD Signature: with User ID: [email or web address] : with User ID: [email or web address]
[2018-05-12] MEDS ORDERED: EPHEDRINE SULFATE INJ 50 MG/1 ML AMPULE ONE (16:44)
[2018-05-12] MEDS ORDERED: BUPIVACAINE HCL 0.25 % INJ/PF (2.5 MG/1 ML) 30 ML VIAL ONE ×2 (16:45→18:46)
[2018-05-12] MEDS ORDERED: LIDOCAINE 1.5%/EPINEPHRINE INJ-PF 30 ML SDV ONE (16:45)
[2018-05-12] MEDS ORDERED: FENTANYL/BUPIVACAINE/NS/PF 300 MCG/150 ML RTUINJ EPI ONE (16:45)
[2018-05-12] MEDS ORDERED: OXYTOCIN/NORMAL SALINE 20 UNIT/1,000 ML RTUINJ ONE (17:58)
[2018-05-12] MEDS ORDERED: DIPHENHYDRAMINE HCL 25 MG CAPSULE PO PRN (19:11)
[2018-05-12] MEDS ORDERED: PSEUDOEPHEDRINE HCL 30 MG TABLET PO PRN (19:11)
[2018-05-12] MEDS ORDERED: DIBUCAINE 1% OINTMENT 28 GM TP PRN (19:11)
[2018-05-12] MEDS ORDERED: PROMETHAZINE HCL INJ 25 MG/1 ML VIAL IV PRN (19:11)
[2018-05-12] MEDS ORDERED: GLYCERIN/WITCH HAZEL LEAF 1 EACH MED..PAD TP PRN (19:11)
[2018-05-12] MEDS ORDERED: NA PHOS,M-B/NA PHOS,DI-BA (ADULT) 133 ML ENEMA PR PRN (19:11)
[2018-05-12] MEDS ORDERED: MAGNESIUM HYDROXIDE SUSP 30 ML UDCUP PO PRN (19:11)
[2018-05-12] MEDS ORDERED: MEASLES,MUMPS&RUBELLA VACC/PF 0.5 ML VIAL SUBCUT PRN (19:11)
[2018-05-12] MEDS ORDERED: BENZOCAINE/MENTHOL AEROSOL SPRAY 56 ML TOP PRN (19:11)
[2018-05-12] MEDS ORDERED: PROMETHAZINE HCL 25 MG TABLET PO PRN (19:11)
[2018-05-12] MEDS ORDERED: DIPH/PERTUSS(ACELL)/TETANUS VAC/PF 0.5 ML SYR (>=10YO) IM PRN (19:11)
[2018-05-12] MEDS ORDERED: ZOLPIDEM TARTRATE 5 MG TABLET PO PRN (19:11)
[2018-05-12] MEDS ORDERED: ACETAMINOPHEN 650 MG SUPP.RECT PR PRN (19:11)
[2018-05-12] MEDS ORDERED: OXYTOCIN/NORMAL SALINE 20 UNIT/1,000 ML RTUINJ IV PRN (19:11)
[2018-05-12] MEDS ORDERED: PROMETHAZINE HCL 25 MG SUPP.RECT PR PRN (19:11)
--- NOTE | 2018-05-12 19:14 | PDOC DELIVERY SUMMARY ---
Delivery Summary - Maternal Ruptured Membranes: AROM Fluids: Clear - Delivery Labor: Augmentation Uterine Contraction Monitoring: External Support Person Present: Yes Nuchal Cord: Yes
[2018-05-12] MEDS: IBUPROFEN 800 MG TABLET PO SCH (22:29)
[2018-05-12] MEDS: FAMOTIDINE 20 MG TABLET PO SCH (22:29)
[2018-05-13] MEDS: PENICILLIN G POTASSIUM 2,500,000 UNIT in DEXTROSE 5%-WATER 50 ML IV SCH (00:07)
[2018-05-13] MEDS: ACETAMINOPHEN WITH CODEINE #3 TABLET PO PRN ×4 (01:39→23:37)
[2018-05-13] MEDS: IBUPROFEN 800 MG TABLET PO SCH ×3 (06:13→21:10)
[2018-05-13 07:18] LABS: HEMATOCRIT 26.7 % (36.0-47.0); HEMOGLOBIN 9.1 g/dL (12.0-15.5); MEAN CORPUSCULAR HEMOGLOBIN 26.1 pg (27.0-33.4); MEAN CORPUSCULAR HGB CONC 34.1 g/dL (32.0-36.0); MEAN CORPUSCULAR VOLUME 76 fl (80-97); PLATELET COUNT 315 10^3/uL (150-450); RED BLOOD COUNT 3.49 10^6/uL (3.72-5.28); RED CELL DISTRIBUTION WIDTH 14.1 % (11.5-14.0); WHITE BLOOD COUNT 12.9 10^3/uL (4.0-10.5)
[2018-05-13] MEDS: SENNOSIDES/DOCUSATE 8.6-50 MG 1 EACH TABLET PO SCH (10:07)
[2018-05-13] MEDS: FAMOTIDINE 20 MG TABLET PO SCH ×2 (10:07→21:11)
[2018-05-13] MEDS: FERROUS SULFATE 325 MG TABLET PO SCH ×2 (10:07→17:32)
[2018-05-13] MEDS: DOCUSATE SODIUM 100 MG CAPSULE PO SCH ×2 (10:07→17:32)
[2018-05-13] MEDS: PRENATAL VITAMIN W DHA CAPSULE PO SCH (10:07)
--- NOTE | 2018-05-13 11:45 | PDOC PROGRESS REPORT ---
Subjective-OB Progress Note for:: 05/13/18 Subjective: Pt doing well, no concerns. She reports light bleeding, voiding without difficulty, regular diet. Physical Exam (OB) Vital Signs: Temp Pulse Resp BP Pulse Ox 97.8 F 72 15 100/60 99 05/13/18 07:39 05/13/18 07:39 05/13/18 07:39 05/13/18 07:39 05/13/18 07:39 Intake & Output 05/12/18 05/13/18 05/14/18 06:59 06:59 06:59 Weight 66 kg - Abdomen Description: Soft, Flat Hernia Present: No Fundal Description: Firm, Midline Fundal Height: u/u - u/2 Objective-Diagnostic Laboratory: 05/13/18 06:43 05/13/18 05/13/18 06:43 06:43 WBC 12.9 H RBC 3.49 L Hgb 9.1 L Hct 26.7 L MCV 76 L MCH 26.1 L MCHC 34.1 RDW 14.1 H Plt Count 315 Blood Type Cancelled Assessment and Plan(PN) - Assessment and Plan (1) Acute blood loss anemia Is this a current diagnosis for this admission?: Yes (2) Normal vaginal delivery Is this a current diagnosis for this admission?: Yes - Time Spent with Patient Time with patient: Less than 15 minutes Medications reviewed and adjusted accordingly: Yes - Disposition Anticipated Discharge: Home Within: within 24 hours
[2018-05-14] MEDS: ACETAMINOPHEN WITH CODEINE #3 TABLET PO PRN ×2 (05:08→09:42)
[2018-05-14] MEDS: IBUPROFEN 800 MG TABLET PO SCH (05:09)
[2018-05-14 07:31] VITALS: BP 104/64
--- NOTE | 2018-05-14 07:48 | Delivery Summary ---
Del Sum A-C Datetime Report Generated by CPN: 05/14/2018 07:48 DELIVERY PERSONNEL DELIVERY PERSONNEL: [id number] Delivery Doctor:: Fabian Kerns MD Labor and Delivery Nurse:: Laura Hernandez RN Roofing Sales Representative/ESTIMATING ENGINEER: Nabila Deems, [employer] DEVELOPER MATERNAL INFORMATION Delivery Anesthesia: Epidural Medications After Delivery: Pitocin Bolus-Please Comment; Pitocin Drip 20 Units/1000ml NSS; Other-Please Comment Meds After Delivery Comment: cytotec 1000mcgPR Maternal Complications: None Provider Comments: nuchal cord x1 LABOR SUMMARY EDC: 06/07/2018 00:00 No. Babies in Womb: 1 Attempted: No Labor Anesthesia: Epidural LABOR INFORMATION Reason for Induction: Not Applicable Onset of Labor: 05/12/2018 16:30 Complete Dilatation: 05/12/2018 18:55 Oxytocin: Augmentation Group B Beta Strep: Unknown Antibiotics # of Doses: 5 Antibiotics Time of Last Dose: 1848 Name of Antibiotic Given: PENICILLIN G Steroids Given: None Reason Steroids Not Administered: Not Applicable MEMBRANES Membranes Rupture Method: Artificial Membranes Rupture Method: Artificial Rupture of Membranes: 05/12/2018 11:29 Length of Rupture (hr): 7.55 Amniotic Fluid Color: Clear Amniotic Fluid Color: Clear Amniotic Fluid Amount: Large Amniotic Fluid Amount: Small Amniotic Fluid Amount: None Amniotic Fluid Odor: None STAGES OF LABOR Stage 1 hr: 2 Stage 1 min: 25 Stage 2 hr: 0 Stage 2 min: 7 Stage 3 hr: 0 Stage 3 min: 4 Total Time in Labor hr: 2 Total Time in Labor min: 36 VAGINAL DELIVERY Episiotomy: None Laceration #1: None Laceration Extension #1: N/A Laceration Repair: Not Applicable Sponge Count Correct: N/A Sharps Count Correct: N/A CSECTION DELIVERY Primary Indication: N/A Secondary Indication: N/A CSection Incidence: N/A Labor: N/A Elective: N/A CSection Incision: N/A BABY A INFORMATION Delivery Date/Time: 05/12/2018 19:02 Method of Delivery: Vaginal Born in Route : No : N/A Forceps: N/A Vacuum Extraction: N/A Shoulder Dystocia : No PRESENTATION/POSITION BABY A Presentation: Cephalic Cephalic Presentation: Vertex Vertex Position: Right Occipital Anterior Breech Presentation: N/A PLACENTA INFORMATION BABY A Placenta Delivery Time : 05/12/2018 19:06 Placenta Method of Delivery: Spontaneous Placenta Status: Delivered SCORES BABY A Heart Rate 1 min: >100 bpm Resp Effort 1 min: Good Cry Reflex Irritability 1 min: Cough or Sneeze or Pulls Away Muscle Tone 1 min: Active Motion Color 1 min: Blue/Pale Resuscitation Effort 1 min: Tactile Stimulation SCORE 1 MIN: 8 Heart Rate 5 min: >100 bpm Resp Effort 5 min: Good Cry Reflex Irritability 5 min: Cough or Sneeze or Pulls Away Muscle Tone 5 min: Active Motion Color 5 min: Body [place], Extremities Blue Resuscitation Effort 5 min: Tactile Stimulation SCORE 5 MIN: 9 INFANT INFORMATION BABY A Gestational Age at Delivery: 36.2 Gestational Status: Late - 34- 36.6 Weeks Outcome : Liveborn Condition : Stable Infant Sex: Female IDENTIFICATION BABY A Verification Date/Time: 05/12/2018 19:19 ID Band Number: [id number] Mother's Name Verified: Yes RN Verifying Infant: Rosalva Burton, RN Additional Verifying Personnel: Catracho Valladares, RN WEIGHT/LENGTH BABY A Birthweight (gm): 3370 Infant Weight (lb): 7 Infant Weight (oz): 7 Length (in): 19.00 Length (cm): 48.26 CORD INFORMATION BABY A No. Cord Vessels: 3 Nuchal Cord : Around Neck x1, Loose Cord Blood Taken: Yes-For Eval (Mom's Blood Type - or O+) Infant Suction: Mouth; Nose ASSESSMENT BABY A Infant Complications: None Physical Findings at Delivery: Within Normal Limits Respirations: Appears Normal Skin to Skin: Yes Transferred To: [facility] BABY B INFORMATION : N/A SIGNATURES Signature: with User ID: [email or web address]
--- NOTE | 2018-05-14 09:32 | PDOC DISCHARGE SUMMARY ---
Final Diagnosis Discharge Date: 05/14/18 - Final Diagnosis (1) Normal vaginal delivery Is this a current diagnosis for this admission?: Yes Discharge Data - Discharge Medication Prescriptions: Acetaminophen with Codeine [Tylenol #3 Tablet] 1 each PO Q4HP PRN #20 tablet PRN Reason: Ibuprofen [Motrin 800 mg Tablet] 800 mg PO Q8 #60 tablet Home Medications: Pnv,Calcium 72/Iron/Folic Acid [Pnv Plus Multivit Tab] 1 each PO DAILY 02/27/16 Acetaminophen with Codeine [Tylenol #3 Tablet] 1 each PO Q4HP PRN #20 tablet 10/20 Ferrous Sulfate [Feosol 325 mg Tablet] 325 mg PO BID tablet 05/14/18 Ibuprofen [Motrin 800 mg Tablet] 800 mg PO Q8 #60 tablet 05/14/18 Procedures: NST Intrapartum Procedure(s): Spontaneous Vaginal Delivery - Diagnosis Test Laboratory: Temp Pulse Resp BP Pulse Ox 97.6 F 99 20 104/64 99 05/14/18 07:29 05/14/18 07:29 05/14/18 07:29 05/14/18 07:29 05/14/18 07:29 05/11/18 05/11/18 05/11/18 22:20 23:04 23:44 RBC Cancelled 3.92 Hgb Cancelled 10.0 L Hct Cancelled 30.1 L Urine Opiates Screen NEGATIVE 05/13/18 06:43 RBC 3.49 L Hgb 9.1 L Hct 26.7 L Urine Opiates Screen - Discharge information/Instructions Discharge Activity: Balance Activity w/Rest, Pelvic Rest Discharge Diet: Regular Disposition: HOME, SELF-CARE Follow up with: [facility] in: 4, Weeks
[2018-05-14] MEDS: DOCUSATE SODIUM 100 MG CAPSULE PO SCH (09:41)
[2018-05-14] MEDS: FERROUS SULFATE 325 MG TABLET PO SCH (09:41)
[2018-05-14] MEDS: FAMOTIDINE 20 MG TABLET PO SCH (09:41)
[2018-05-14] MEDS: SENNOSIDES/DOCUSATE 8.6-50 MG 1 EACH TABLET PO SCH (09:42)
[2018-05-14] MEDS: PRENATAL VITAMIN W DHA CAPSULE PO SCH (09:42)
== END 2018-05-14 12:36 | disposition home or self-care (01) | DRG 775 ==
LOC: LC 22:39 → LR 22:44 → 2S 05-12 21:00
PROVIDERS: ADMIT Obstetrics & Gynecology Gynecology; ATTEND Obstetrics & Gynecology Gynecology
PROC: 10E0XZZ Delivery of Products of Conception, External Approach (ICD-10-PCS; principal; 2018-05-12)
DX: O60.14X0 Preterm labor third trimester with preterm delivery third trimester, not applicable or unspecified (principal); O99.334 Smoking (tobacco) complicating childbirth; F17.210 Nicotine dependence, cigarettes, uncomplicated; O69.81X0 Labor and delivery complicated by cord around neck, without compression, not applicable or unspecified; Z3A.36 36 weeks gestation of pregnancy; Z37.0 Single live birth
CPT/HCPCS: 36415; 80307; 81001; 85025; 85027; 86592; 86850; 86900; 86901; 87491; 87591; 94760; J2540; J2590; J3010; J3490

== ENCOUNTER 2018-06-25 07:40 | Day surgery (SDC) | payer OTHER ==
[2018-06-23 12:31] LABS: HEMATOCRIT 38.5 % (36.0-47.0); HEMOGLOBIN 12.5 g/dL (12.0-15.5); MEAN CORPUSCULAR HEMOGLOBIN 24.5 pg (27.0-33.4); MEAN CORPUSCULAR HGB CONC 32.6 g/dL (32.0-36.0); MEAN CORPUSCULAR VOLUME 75 fl (80-97); PLATELET COUNT 382 10^3/uL (150-450); RED BLOOD COUNT 5.12 10^6/uL (3.72-5.28); RED CELL DISTRIBUTION WIDTH 20.1 % (11.5-14.0); WHITE BLOOD COUNT 8.7 10^3/uL (4.0-10.5)
[2018-06-23 12:33] LABS: APPEARANCE,URINE CLEAR; BILIRUBIN,URINE NEGATIVE (NEGATIVE); COLOR,URINE YELLOW; GLUCOSE, URINE NEGATIVE (NEGATIVE); KETONES,URINE NEGATIVE (NEGATIVE); LEUKOCYTE ESTERASE,URINE NEGATIVE (NEGATIVE); NITRITE,URINE NEGATIVE (NEGATIVE); PROTEIN,URINE NEGATIVE (NEGATIVE); URINE SPECIFIC GRAVITY 1.025
[~2018-06-25 07:40] MED LIST: EPHEDRINE SULFATE INJ 50 MG/1 ML AMPULE ONE; FENTANYL CITRATE INJ/PF 100 MCG/2 ML AMPUL ONE; LACTATED RINGERS 1000 ML IV PRN; LIDOCAINE 0.5% INJ-PF (5 MG/ML) 50 ML SDV SUBCUT PRN; LIDOCAINE 2% INJ-PF (20 MG/ML) 10 ML AMPUL ONE; MIDAZOLAM 2 MG/2 ML INJ ONE; PROPOFOL INJ 200 MG/20 ML VIAL IV ONE
[2018-06-25] MEDS ORDERED: ONDANSETRON HCL INJ/PF 4 MG/2 ML SDV ONE (08:00)
[2018-06-25] MEDS ORDERED: DEXAMETHASONE SOD PHOSPHATE INJ 4 MG/1 ML VIAL ONE (08:00)
[2018-06-25] MEDS ORDERED: KETOROLAC TROMETHAMINE 60 MG/2 ML SDV ONE (08:00)
--- NOTE | 2018-06-25 09:23 | Operative Report ---
Operative Report DATE OF SURGERY: 06/25/18 PREOPERATIVE DIAGNOSIS: Patient desires surgical sterilization POSTOPERATIVE DIAGNOSIS: Same OPERATION: Laparoscopic tubal ligation with Filshie clips SURGEON: ANNA CHAMBERLAIN ANESTHESIA: GA TISSUE REMOVED OR ALTERED: Fallopian tubes COMPLICATIONS: None ESTIMATED BLOOD LOSS: 5 cc INTRAOPERATIVE FINDINGS: Normal uterus tubes and ovaries PROCEDURE: Patient was taken to the OR and placed in supine position. General anesthesia was induced. She was placed in dorsolithotomy position using Aiden stirrups. Her perineum vagina and abdomen were prepared and draped in sterile fashion. She did not need catheterization as she had voided just prior to going back to the OR. A sponge stick was placed in the vagina for manipulation of the uterus. Incision was made the umbilicus and then natural umbilical defect was closed from a previous gallbladder surgery. For this reason we did a sharp cut down by elevating first the fascia with hemostats and incising with scissors and then incising with scissors entering the abdominal cavity without incident. A blunt port was then placed and laparoscopy confirmed appropriate placement. View of the pelvis was good. Filshie clip was placed across each fallopian tube at the mid isthmic portion. Each tube had been followed out to its fimbriated end for anatomic identification. At the end of the case the gas was allowed to escape and the port and scope were removed in unison. The fascia at the umbilicus was closed with a 2-0 Vicryl stitch and skin closed with 4-0 undyed Vicryl stitch. Sponge stick was removed from the vagina. She was extubated in the OR and taken recovery in stable condition.
[2018-06-25] MEDS ORDERED: FENTANYL CITRATE INJ/PF 100 MCG/2 ML AMPUL INJ ONE ×2 (09:26→09:31)
[2018-06-25] MEDS ORDERED: LORAZEPAM INJ 2 MG/1 ML VIAL IV ONE (09:34)
[2018-06-25] MEDS ORDERED: MORPHINE SULFATE 10 MG/ML INJ INJ ONE ×2 (09:35→09:40)
[2018-06-25] MEDS ORDERED: OXYCODONE-ACETAMINOPHEN 5-325 MG TABLET ONE (10:37)
[2018-06-25] MEDS ORDERED: OXYCODONE-ACETAMINOPHEN 5-325 MG TABLET PO ONE (11:45)
[2018-06-25 12:06] VITALS: BP 102/51
== END 2018-06-25 11:35 | disposition home or self-care (01) ==
LOC: OROUT 07:40
PROVIDERS: ATTEND Obstetrics & Gynecology
DX: Z30.2 Encounter for sterilization (principal); F17.210 Nicotine dependence, cigarettes, uncomplicated; R01.1 Cardiac murmur, unspecified; Z88.7 Allergy status to serum and vaccine; Z91.041 Radiographic dye allergy status
CPT/HCPCS: 36415; 85027; 81005; 81025; 58671; J1100; J1885; J3010; J2270; J2060; J2405; J2704; J3490; 851; J2250

== ENCOUNTER → 2018-11-13 | Day surgery (SDC) | payer OTHER ==
--- NOTE | 2018-11-13 14:53 | RADIOLOGY REPORT (SQ) ---
EXAM DESCRIPTION: ARTHRO SHOULDER INJECTION; FLUORO/NEEDLE PLACEMENT COMPLETED DATE/TIME: 11/13/2018 1:49 pm REASON FOR STUDY: SUPERIOR GLENOID LABRUM LESION OF RIGHT SHOULDER (S43.431D) S43.431D SUPERIOR GLE NOID LABRUM LESION OF RIGHT SHOULDER, S COMPARISON: None. FLUOROSCOPY TIME: 13 seconds. 1 images saved to PACS. LIMITATIONS: None. PROCEDURE: Procedure, risks, benefits and alternatives explained to patient who then gave written co nsent. The right shoulder was marked and a time out was called for correct procedure verification. P osterior entry site marked using fluoroscopic guidance. Shoulder prepped and draped using sterile te chnique. Local anesthesia achieved using 1% lidocaine injection. Hypodermic needle introduced into the joint space under direct fluoroscopic visualization. Non-ionic contrast instilled to confirm intr a-articular position. Dilute gadolinium solution then injected. Needle removed and entry site covere d with sterile bandage. No immediate complications noted. TECHNIQUE: Digital images acquired during fluoroscopy and stored on PACS. Patient immediately take n to the MR suite for additional imaging. INJECTION LOCATION: Posterior right shoulder. CONTRAST TYPE AND AMOUNT: 10 mL gadolinium saline mixture. IMPRESSION: SUCCESSFUL NEEDLE PLACEMENT AND INJECTION FOR RIGHT SHOULDER MR ARTHROGRAM USING POSTERI OR APPROACH. COMMENT: Quality ID 145: Final reports for procedures using fluoroscopy that document radiation exp osure indices, or exposure time and number of fluorographic images (if radiation exposure indices are not available) TECHNICAL DOCUMENTATION: JOB ID: [id number] [employer]- All Rights Reserved Reading location - IP/workstation name: [email or web address]
--- NOTE | 2018-11-13 14:53 | RADIOLOGY REPORT (SQ) ---
EXAM DESCRIPTION: ARTHRO SHOULDER INJECTION; FLUORO/NEEDLE PLACEMENT COMPLETED DATE/TIME: 11/13/2018 1:49 pm REASON FOR STUDY: SUPERIOR GLENOID LABRUM LESION OF RIGHT SHOULDER (S43.431D) S43.431D SUPERIOR GLE NOID LABRUM LESION OF RIGHT SHOULDER, S COMPARISON: None. FLUOROSCOPY TIME: 13 seconds. 1 images saved to PACS. LIMITATIONS: None. PROCEDURE: Procedure, risks, benefits and alternatives explained to patient who then gave written co nsent. The right shoulder was marked and a time out was called for correct procedure verification. P osterior entry site marked using fluoroscopic guidance. Shoulder prepped and draped using sterile te chnique. Local anesthesia achieved using 1% lidocaine injection. Hypodermic needle introduced into the joint space under direct fluoroscopic visualization. Non-ionic contrast instilled to confirm intr a-articular position. Dilute gadolinium solution then injected. Needle removed and entry site covere d with sterile bandage. No immediate complications noted. TECHNIQUE: Digital images acquired during fluoroscopy and stored on PACS. Patient immediately take n to the MR suite for additional imaging. INJECTION LOCATION: Posterior right shoulder. CONTRAST TYPE AND AMOUNT: 10 mL gadolinium saline mixture. IMPRESSION: SUCCESSFUL NEEDLE PLACEMENT AND INJECTION FOR RIGHT SHOULDER MR ARTHROGRAM USING POSTERI OR APPROACH. COMMENT: Quality ID 145: Final reports for procedures using fluoroscopy that document radiation exp osure indices, or exposure time and number of fluorographic images (if radiation exposure indices are not available) TECHNICAL DOCUMENTATION: JOB ID: [id number] [employer]- All Rights Reserved Reading location - IP/workstation name: [facility]-RR
--- NOTE | 2018-11-15 15:16 | RADIOLOGY REPORT (SQ) ---
EXAM DESCRIPTION: MRI RT UPPER JOINT WITH COMPLETED DATE/TIME: 11/13/2018 2:10 pm REASON FOR STUDY: SUPERIOR GLENOID LABRUM LESION OF RIGHT SHOULDER (S43.431D) S43.431D SUPERIOR GLE NOID LABRUM LESION OF RIGHT SHOULDER, S COMPARISON: None. TECHNIQUE: Right shoulder images acquired and stored on PACS. Oblique coronal, oblique sagittal, and axial imaging to include fat sensitive sequences as T1, water sensitive sequences as FST2/STIR, and contrast sensitive sequences as FST1. LIMITATIONS: None. FINDINGS: JOINT DISTENTION: Adequate distention for interpretation. BONE MARROW AND CORTEX: Normal. No significant osteophytes. No edema or defects. AC JOINT: Type II acromion. No significant AC joint arthropathy. GLENOHUMERAL JOINT: No subluxation or dislocation. No focal chondral defects or reactive bone changes . ROTATOR CUFF: Intact without significant tendinopathy, partial or full-thickness tears. No peritendin itis. LABRUM AND BICEPS LABRAL COMPLEX: Normal signal in the rotator interval without tear of the superior glenohumeral ligament. Superior labrum, intra-articular long head biceps intact. Distal biceps in no rmal anatomic location in bicipital groove. No paralabral cysts. INFERIOR LABRAL COMPLEX: Bony glenoid and labrum intact. IGHL intact without thickening or tear. No p aralabral cysts. ADJACENT SOFT TISSUES: No masses or nodes. OTHER: No other significant finding. IMPRESSION: NORMAL MRI ARTHROGRAM OF THE SHOULDER. TECHNICAL DOCUMENTATION: JOB ID: [id number] [employer]- All Rights Reserved Reading location - IP/workstation name: [email or web address]
== END ==
LOC: RAD 12:30
PROVIDERS: ATTEND Family Medicine
DX: S43.431D Superior glenoid labrum lesion of right shoulder, subsequent encounter (principal); X58.XXXD Exposure to other specified factors, subsequent encounter
CPT/HCPCS: 73222; 77002; 23350; A9576

== ENCOUNTER 2019-02-22 14:52 | Emergency (ER) | payer OTHER ==
[2019-02-22] MEDS ORDERED: KETOROLAC TROMETHAMINE INJ/PF 30 MG/1 ML SDV IV ONE ×2 (15:54→20:28)
[2019-02-22] MEDS ORDERED: ONDANSETRON HCL INJ/PF 4 MG/2 ML SDV IV ONE ×2 (15:54→17:34)
--- NOTE | 2019-02-22 15:56 | ER Document Report ---
ED Medical Screen (RME) - General Chief Complaint: Pelvic Pain Stated Complaint: PELVIC PAIN Time Seen by Provider: 02/22/19 15:41 Primary Care Provider: CHACORTA BLACK CNM [Primary Care Provider] - Follow up as needed Mode of Arrival: Ambulatory Information source: Patient TRAVEL OUTSIDE OF THE [place] IN LAST 30 DAYS: No - HPI Patient complains to provider of: abdominal pain Notes: 02/22/19 15:55 Patient here with complaints of right lower quadrant abdominal pain. She states the pain is been present for about a week. Is been fairly constant. It seems to be getting worse. States that she think she had a fever at one point. She has had nausea vomiting, no diarrhea. No dysuria. No vaginal bleeding or discharge. Last normal menstrual cycle was February 05. She has had a tubal ligation. She has had a cholecystectomy. She does have a history of ovarian cyst. Exam No distress, nontoxic. Patient does appear to be uncomfortable. Lungs clear and equal throughout. Heart sounds normal. Right lower quadrant tenderness with voluntary guarding on limited triage abdominal exam. Plan CBC, CMP, lipase, urine, urine . Due to the fact that the patient has as much tenderness on abdominal exam with some guarding and still has her appendix, I have started with a CT of the abdomen and pelvis to help rule out acute appendicitis. Patient states that she has difficulty breathing and rash with IV dye, even when she is been premedicated. Therefore have ordered the CT without contrast due to this allergy. An initial examination was made on the patient as part of the triage process, and it was determined a more comprehensive evaluation was necessary. Initial labs were ordered and patient was transferred to another provider in the ED who assumed care and finished evaluation and plan. - Related Data Allergies/Adverse Reactions: Iodinated Contrast- Oral and IV Dye [IV Dye, Iodine Containing] Allergy (Severe, Verified 02/22/19 14:53) Difficulty breathing Shellfish * [Shellfish] Allergy (Severe, Verified 02/22/19 14:53) Difficulty breathing METAL Allergy (Severe, Uncoded 02/22/19 14:53) RASH Past Medical History - Past Medical History Cardiac Medical History: Denies: Hx Coronary Artery Disease, Hx Heart Attack, Hx Hypertension Pulmonary Medical History: Denies: Hx Asthma, Hx Bronchitis, Hx COPD, Hx Pneumonia Neurological Medical History: Reports: Hx Migraine. Denies: Hx Cerebrovascular Accident, Hx Seizures Renal/ Medical History: Denies: Hx Peritoneal Dialysis Musculoskeltal Medical History: Denies Hx Arthritis Past Surgical History: Reports: Hx Cholecystectomy - Immunizations Hx Diphtheria, Pertussis, Tetanus Vaccination: Yes History of Influenza Vaccine for 08/2017 - 01/2018 Season: No Physical Exam - Vital signs Vitals: Temp Pulse Resp BP Pulse Ox 98.2 F 68 14 128/65 H 99 02/22/19 14:56 02/22/19 14:56 02/22/19 14:56 02/22/19 14:56 02/22/19 14:56 Course - Vital Signs Vital signs: Temp Pulse Resp BP Pulse Ox 98.2 F 68 14 128/65 H 99 02/22/19 14:56 02/22/19 14:56 02/22/19 14:56 02/22/19 14:56 02/22/19 14:56 Doctor's Discharge - Discharge Referrals: CHACORTA BLACK CNM [Primary Care Provider] - Follow up as needed
[2019-02-22 16:55] LABS: ABSOLUTE EOSINOPHILS # (AUTO) 0.2 10^3/uL (0.0-0.6); ABSOLUTE LYMPHOCYTES (AUTO) 2.9 10^3/uL (0.5-4.7); ABSOLUTE MONOCYTES (AUTO) 0.5 10^3/uL (0.1-1.4); ABSOLUTE NEUT (AUTO) 4.5 10^3/uL (1.7-8.2); BASOPHILS % (AUTO) 0.5 % (0-2); EOSINOPHILS % (AUTO) 2.8 % (0-6); HEMATOCRIT 39.2 % (36.0-47.0); HEMOGLOBIN 13.3 g/dL (12.0-15.5); LYMPHOCYTES % (AUTO) 35.5 % (13-45); MEAN CORPUSCULAR HEMOGLOBIN 29.1 pg (27.0-33.4); MEAN CORPUSCULAR VOLUME 86 fl (80-97); MONOCYTES % (AUTO) 6.3 % (3-13); PLATELET COUNT 317 10^3/uL (150-450); RED BLOOD COUNT 4.58 10^6/uL (3.72-5.28); RED CELL DISTRIBUTION WIDTH 14.4 % (11.5-14.0); SEGMENTED NEUTROPHILS % (AUTO) 54.9 % (42-78); TOTAL CELLS COUNTED % (AUTO) 100 %; WHITE BLOOD COUNT 8.1 10^3/uL (4.0-10.5)
[2019-02-22 16:56] LABS: APPEARANCE,URINE CLEAR; BILIRUBIN,URINE NEGATIVE (NEGATIVE); COLOR,URINE YELLOW; GLUCOSE, URINE NEGATIVE (NEGATIVE); KETONES,URINE NEGATIVE (NEGATIVE); LEUKOCYTE ESTERASE,URINE NEGATIVE (NEGATIVE); NITRITE,URINE NEGATIVE (NEGATIVE); PROTEIN,URINE NEGATIVE (NEGATIVE); URINE SPECIFIC GRAVITY 1.016; UROBILINOGEN,URINE NEGATIVE mg/dL (<2.0)
[2019-02-22 17:13] LABS: ALANINE AMINOTRANSFERASE 18 U/L (9-52); ALBUMIN 4.2 g/dL (3.5-5.0); ALKALINE PHOSPHATASE 65 U/L (38-126); ANION GAP 5 (5-19); ASPARTATE AMINO TRANSFERASE 14 U/L (14-36); BILIRUBIN,DIRECT 0.2 mg/dL (0.0-0.4); BILIRUBIN,TOTAL 0.4 mg/dL (0.2-1.3); BLOOD UREA NITROGEN 11 mg/dL (7-20); CALCIUM 9.5 mg/dL (8.4-10.2); CARBON DIOXIDE 23 mmol/L (22-30); CHLORIDE 110 mmol/L (98-107); GLUCOSE 85 mg/dL (75-110); LIPASE 20.4 U/L (23-300); POTASSIUM 4.2 mmol/L (3.6-5.0); SODIUM 138.2 mmol/L (137-145); TOTAL PROTEIN 6.8 g/dL (6.3-8.2)
--- NOTE | 2019-02-22 19:03 | RADIOLOGY REPORT (SQ) ---
EXAM DESCRIPTION: CT ABD/PELVIS NO ORAL OR IV COMPLETED DATE/TIME: 02/22/2019 6:29 pm REASON FOR STUDY: RLQ pain COMPARISON: None. TECHNIQUE: CT scan of the abdomen and pelvis performed without intravenous or oral contrast. Images reviewed with lung, soft tissue, and bone windows. Reconstructed coronal and sagittal MPR images revi ewed. All images stored on PACS. All CT scanners at this facility use dose modulation, iterative reconstruction, and/or weight based d osing when appropriate to reduce radiation dose to as low as reasonably achievable (ALARA). [facility]: Dose Right [facility]: CareDose [facility]: Dose Right [facility]: Teradose 4D [facility]: Smart DeliveryEdge RADIATION DOSE: CT Rad equipment meets quality standard of care and radiation dose reduction techniq ues were employed. CTDIvol: 9.6 mGy. DLP: 535 mGy-cm.mGy. LIMITATIONS: None. FINDINGS: LOWER CHEST: No significant findings. No nodules or infiltrates. NON-CONTRASTED LIVER, SPLEEN, ADRENALS: Evaluation limited by lack of IV contrast. No identified sign ificant masses. PANCREAS: No masses. No peripancreatic inflammatory changes. GALLBLADDER: Surgically absent. RIGHT KIDNEY AND URETER: No cysts identified. No solid masses. No calcified stones. No hydronephrosis or hydroureter. LEFT KIDNEY AND URETER: No cysts identified. No solid masses. No calcified stones. No hydronephrosis or hydroureter. AORTA AND RETROPERITONEUM: No aneurysm. No retroperitoneal masses or adenopathy. BOWEL AND PERITONEAL CAVITY: No obvious masses or inflammatory changes. No free fluid. APPENDIX: Normal. PELVIS, BLADDER, AND ABDOMINAL WALL:No abnormal masses. Trace free fluid. Unremarkable bladder. BONES: No acute findings. OTHER: No other significant finding. IMPRESSION: NO ACUTE FINDINGS. TECHNICAL DOCUMENTATION: JOB ID: [id number] Quality ID # [id number]: Final reports with documentation of one or more dose reduction techniques (e.g., Au tomated exposure control, adjustment of the mA and/or kV according to patient size, use of iterative reconstruction technique) 2010 [employer]- All Rights Reserved Reading location - IP/workstation name: [facility] [facility]
[2019-02-22] MEDS ORDERED: FENTANYL CITRATE INJ/PF 100 MCG/2 ML AMPUL IV PRN (20:28)
--- NOTE | 2019-02-22 20:32 | ER Document Report ---
ED General - General Chief Complaint: Pelvic Pain Stated Complaint: PELVIC PAIN Time Seen by Provider: 02/22/19 15:41 Primary Care Provider: CHACORTA BLACK CNM [Primary Care Provider] - Follow up as needed Mode of Arrival: Ambulatory Notes: Patient is a 23-year-old female without chronic medical problems history of recurrent ovarian cysts who presents with approximately 4-5 days of lower abd ominal pain. The patient reports that the pain is a throbbing, aching, cramping pain moderate to severe in nature mostly localized to her right adnexal region. States the pain started relatively abruptly and has been worsening since that time. Nothing seems to improve the pain. Nothing worsens the pain. She states this feels identical to when she has had ruptured ovarian cyst in the past and she only came to the emergency department at her 's behest sonja. Has not seen her primary care physician regarding today's concerns. Denies vaginal bleeding, vaginal discharge or dysuria. TRAVEL OUTSIDE OF THE [place] IN LAST 30 DAYS: No - Related Data Allergies/Adverse Reactions: Iodinated Contrast- Oral and IV Dye [IV Dye, Iodine Containing] Allergy (Severe, Verified 02/22/19 14:53) Difficulty breathing Shellfish * [Shellfish] Allergy (Severe, Verified 02/22/19 14:53) Difficulty breathing METAL Allergy (Severe, Uncoded 02/22/19 14:53) RASH Past Medical History - General Information source: Patient - Social History Smoking Status: Current Every Day Smoker Chew tobacco use (# tins/day): No Frequency of alcohol use: Social Drug Abuse: None Lives with: Spouse/Significant other Family History: Reviewed & Not Pertinent Patient has suicidal ideation: No Patient has homicidal ideation: No - Past Medical History Cardiac Medical History: Denies: Hx Coronary Artery Disease, Hx Heart Attack, Hx Hypertension Pulmonary Medical History: Denies: Hx Asthma, Hx Bronchitis, Hx COPD, Hx Pneumonia Neurological Medical History: Reports: Hx Migraine. Denies: Hx Cerebrovascular Accident, Hx Seizures Renal/ Medical History: Denies: Hx Peritoneal Dialysis Musculoskeletal Medical History: Denies Hx Arthritis Past Surgical History: Reports: Hx Cholecystectomy, Hx Tubal Ligation - Immunizations Hx Diphtheria, Pertussis, Tetanus Vaccination: Yes Review of Systems - Review of Systems Notes: Constitutional: Negative for fever. HENT: Negative for sore throat. Eyes: Negative for visual changes. Cardiovascular: Negative for chest pain. Respiratory: Negative for shortness of breath. Gastrointestinal: Positive for lower abdominal pain and nausea Genitourinary: Negative for dysuria. Musculoskeletal: Negative for back pain. Skin: Negative for rash. Neurological: Negative for headaches, weakness or numbness. 10 point ROS negative except as marked above and in HPI. Physical Exam - Vital signs Vitals: Temp Pulse Resp BP Pulse Ox 98.2 F 68 14 128/65 H 99 02/22/19 14:56 02/22/19 14:56 02/22/19 14:56 02/22/19 14:56 02/22/19 14:56 Interpretation: Normal Notes: PHYSICAL EXAMINATION: GENERAL: Well-appearing, well-nourished and in no acute distress. HEAD: Atraumatic, normocephalic. EYES: Pupils equal round and reactive to light, extraocular movements intact, sclera anicteric, conjunctiva are normal. ENT: nares patent, oropharynx clear without exudates. Moist mucous membranes. NECK: Normal range of motion, supple without lymphadenopathy LUNGS: Breath sounds clear to auscultation bilaterally and equal. No wheezes rales or rhonchi. HEART: Regular rate and rhythm without murmurs ABDOMEN: Soft, mild right adnexal tenderness but no other localized areas of tenderness on palpation, normoactive bowel sounds. No guarding, no rebound. No masses appreciated. EXTREMITIES: Normal range of motion, no pitting or edema. No cyanosis. NEUROLOGICAL: No focal neurological deficits. Moves all extremities spontan eously and on command. PSYCH: Normal mood, normal affect. SKIN: Warm, Dry, normal turgor, no rashes or lesions noted. Course - Re-evaluation Re-evalutation: 02/22/19 20:28 Patient presents with 1 week of right lower and right adnexal abdominal pain much more prominent over the right adnexa than the right lower quadrant. Seen in triage, extensive labs and CT scan of the abdomen pelvis without IV or oral contrast was ordered. These have been reviewed and are noted to be normal including normal visualization of the appendix. On my exam the patient has no actual tenderness of the right lower quadrant but does have focal tenderness the right adnexa. States that she has had similar symptoms many times in the past with ruptured ovarian cyst and is convinced that this is the pathology causing her symptoms today. She states that she only came to the emergency department because her would not stop "bugging me". I did recommend a pelvic examination as well as a transvaginal ultrasound to further clarify that this is not a presentation of pelvic inflammatory disease, intermittent ovarian torsion or complete ovarian torsion. We also discussed the possibility of a very large ovarian cyst that could have not been visualized on CT scan of the abdomen pelvis and that this is not the ideal imaging modality for visualization of the organs. The patient declined pelvic examination as well as transvaginal ultr asound, understands the risks of missing one of these diagnoses including worsening of her symptoms, sepsis, loss of organ function, less likely but still probable progression to . At this time will discharge with return precautions and follow-up recommendations. Verbal discharge instructions given a the bedside and opportunity for questions given. Medication warnings reviewed. Patient is in agreement with this plan and has verbalized understanding of return precautions and the need for follow-up with her primary care physician ideally within the next 24 hours - Vital Signs Vital signs: Temp Pulse Resp BP Pulse Ox 98.2 F 74 14 105/60 98 02/22/19 14:56 02/22/19 20:49 02/22/19 14:56 02/22/19 20:49 02/22/19 20:49 - Laboratory Result Diagrams: 02/22/19 16:32 02/22/19 16:32 Laboratory results interpreted by me: 02/22/19 02/22/19 16:32 16:32 RDW 14.4 H Chloride 110 H Lipase 20.4 L - Diagnostic Test Radiology reviewed: Reports reviewed Discharge - Discharge Clinical Impression: Right lower quadrant abdominal pain, Pelvic pain Condition: Good Disposition: HOME, SELF-CARE Additional Instructions: You have been seen in the Emergency Department (ED) for abdominal pain. Your evaluation did not identify a clear cause of your symptoms but was generally reassuring. You have declined a pelvic exam and transvaginal ultrasound today. As we discussed her symptoms could be from a ruptured cyst. The CT scan of the abdomen pelvis as well as her labs is otherwise reassuring and does not show any evidence of appendicitis or an alternative concerning pathology. You may wish to discuss with your primary [employer] going on hormonal control as a means to stop ovulation which could reduce the recurrence of ovarian cysts. Please follow up with your doctor as soon as possible regarding today's emergent visit and the symptoms that are bothering you. Return to the ED if your abdominal pain worsens or fails to improve, you develop bloody vomiting, bloody diarrhea, you are unable to tolerate fluids due to vomiting, fever greater than 101, or other symptoms that concern you. Referrals: CHACORTA BLACK CNM [Primary Care Provider] - Follow up as needed
[2019-02-22 21:00] VITALS: BP 105/60
== END 2019-02-22 21:03 | disposition home or self-care (01) ==
LOC: ER 14:52
DX: R10.2 Pelvic and perineal pain (principal); R10.31 Right lower quadrant pain; R11.0 Nausea; F17.200 Nicotine dependence, unspecified, uncomplicated; Z87.42 Personal history of other diseases of the female genital tract; Z90.49 Acquired absence of other specified parts of digestive tract; Z98.51 Tubal ligation status; Z91.041 Radiographic dye allergy status; Z91.013 Allergy to seafood; Z91.048 Other nonmedicinal substance allergy status
CPT/HCPCS: 96376; 99284; 96374; 96375; 36415; 84702; 83690; 85025; 80053; 81001; 74176; J3010; J1885; J2405

== ENCOUNTER → 2019-08-25 | Outpatient (CLI) | payer OTHER ==
--- NOTE | 2019-08-25 11:18 | RADIOLOGY REPORT (SQ) ---
EXAM DESCRIPTION: MRI HEAD WITHOUT COMPLETED DATE/TIME: 08/25/2019 10:49 am REASON FOR STUDY: (G43.909)MIGRAINE, UNSP, NOT INTRACTABLE, WITHOUT STATUS MIGRAINOSUS G43.909 MIGR KATHLEEN, UNSP, NOT INTRACTABLE, WITHOUT STATUS MIGR COMPARISON: None. TECHNIQUE: Multiplanar imaging includes non-contrasted T1, T2, FLAIR, and diffusion with ADC map seq uences. Images stored on PACS. LIMITATIONS: None. FINDINGS: ANATOMY: No anomalies. Normal vascular flow voids. Pituitary fossa normal. CSF SPACES: Normal in size and contour. No hemorrhage. CEREBRUM: Sulci and gyri normal in size and contour. Normal white matter signal on FLAIR imaging. No evidence of hemorrhage, mass, or extraaxial fluid collection. POSTERIOR FOSSA: No signal alteration. No hemorrhage. No edema, masses or mass effect. Internal jessica tory canals, cerebello-pontine angles, mastoids normal. DIFFUSION IMAGING: Negative for acute or sub-acute infarction. ORBITS: No masses. Globes normal. PARANASAL SINUSES: There appears be a large mucous retention cyst in the right sphenoid sinus and si gnificant mucoperiosteal thickening in the left sphenoid sinus. Mild mucoperiosteal thickening in th e maxillary sinuses. Mucoperiosteal thickening in the right frontal sinus. OTHER: No other significant finding. IMPRESSION: Extensive sinus disease with no acute intracranial imaging finding. EVIDENCE OF ACUTE STROKE: NO. TECHNICAL DOCUMENTATION: JOB ID: [id number] [employer]- All Rights Reserved Reading location - IP/workstation name: [email or web address]
== END ==
LOC: RAD 09:52
PROVIDERS: ATTEND Physician Assistant
DX: J34.1 Cyst and mucocele of nose and nasal sinus (principal); G43.909 Migraine, unspecified, not intractable, without status migrainosus; J32.9 Chronic sinusitis, unspecified
CPT/HCPCS: 70551

== ENCOUNTER 2019-11-21 11:36 | Emergency (ER) | payer OTHER ==
[2019-11-21 11:46] VITALS: BP 123/73
[2019-11-21] MEDS ORDERED: HYDROCODONE/ACETAMINOPHEN 5-325 MG TABLET PO ONE (12:02)
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
== END 2019-11-21 13:18 | disposition home or self-care (01) ==
LOC: ER 11:36
DX: S16.1XXA Strain of muscle, fascia and tendon at neck level, initial encounter (principal); Z91.013 Allergy to seafood; S29.012A Strain of muscle and tendon of back wall of thorax, initial encounter; R07.89 Other chest pain; V49.9XXA Car occupant (driver) (passenger) injured in unspecified traffic accident, initial encounter; F17.200 Nicotine dependence, unspecified, uncomplicated; Z91.041 Radiographic dye allergy status; Z91.048 Other nonmedicinal substance allergy status
CPT/HCPCS: 71046; 72070; 72125; 99284

== ENCOUNTER 2019-12-16 04:03 | Emergency (ER) | payer OTHER ==
[2019-12-16 04:36] LABS: ABSOLUTE EOSINOPHILS # (AUTO) 0.3 10^3/uL (0.0-0.6); ABSOLUTE LYMPHOCYTES (AUTO) 2.1 10^3/uL (0.5-4.7); ABSOLUTE MONOCYTES (AUTO) 0.7 10^3/uL (0.1-1.4); ABSOLUTE NEUT (AUTO) 13.7 10^3/uL (1.7-8.2); BASOPHILS % (AUTO) 0.2 % (0-2); EOSINOPHILS % (AUTO) 1.7 % (0-6); HEMATOCRIT 41.2 % (36.0-47.0); LYMPHOCYTES % (AUTO) 12.5 % (13-45); MEAN CORPUSCULAR HEMOGLOBIN 29.7 pg (27.0-33.4); MEAN CORPUSCULAR HGB CONC 34.1 g/dL (32.0-36.0); MEAN CORPUSCULAR VOLUME 87 fl (80-97); MONOCYTES % (AUTO) 4.4 % (3-13); PLATELET COUNT 307 10^3/uL (150-450); RED BLOOD COUNT 4.72 10^6/uL (3.72-5.28); RED CELL DISTRIBUTION WIDTH 13.9 % (11.5-14.0); SEGMENTED NEUTROPHILS % (AUTO) 81.2 % (42-78); TOTAL CELLS COUNTED % (AUTO) 100 %; WHITE BLOOD COUNT 16.9 10^3/uL (4.0-10.5)
[2019-12-16 04:49] LABS: ALBUMIN 4.6 g/dL (3.5-5.0); ALKALINE PHOSPHATASE 76 U/L (38-126); ANION GAP 9 (5-19); ASPARTATE AMINO TRANSFERASE 25 U/L (14-36); BILIRUBIN,DIRECT 0.3 mg/dL (0.0-0.4); BILIRUBIN,TOTAL 0.7 mg/dL (0.2-1.3); BLOOD UREA NITROGEN 14 mg/dL (7-20); CALCIUM 9.3 mg/dL (8.4-10.2); CARBON DIOXIDE 21 mmol/L (22-30); CHLORIDE 110 mmol/L (98-107); GLUCOSE 110 mg/dL (75-110); POTASSIUM 3.8 mmol/L (3.6-5.0); TOTAL PROTEIN 7.7 g/dL (6.3-8.2)
[2019-12-16] MEDS ORDERED: NORMAL SALINE 1000 ML 1,000 ML IV ONE (04:50)
[2019-12-16] MEDS ORDERED: MORPHINE SULFATE 10 MG/ML INJ IV PRN (04:51)
[2019-12-16] MEDS ORDERED: ONDANSETRON HCL INJ/PF 4 MG/2 ML SDV IV ONE (04:51)
--- NOTE | 2019-12-16 04:52 | ER Document Report ---
ED General - General Chief Complaint: Lower Abdominal Pain Stated Complaint: RLQ PAIN Time Seen by Provider: 12/16/19 04:52 Mode of Arrival: Ambulatory Information source: Patient TRAVEL OUTSIDE OF THE [place] IN LAST 30 DAYS: No - HPI Onset: This morning Onset/Duration: Sudden Quality of pain: Sharp Severity: Severe Pain Level: 5 Associated symptoms: Chills, Nausea, Vomiting, Sweating Exacerbated by: Other - palpation of RLQ Relieved by: Denies Similar symptoms previously: No Recently seen / treated by doctor: No Notes: 24 year old female with a history of a prior gallbladder removal and a tubal ligation here for sudden onset of abdominal pain which woke her from sleep early this morning. The patient says the pain started around her umbilical area and moved to her RLQ. The patient had associated nausea, vomiting, sweating, and chills. The patient denies urinary symptoms, vaginal discharge, diarrhea. - Related Data Allergies/Adverse Reactions: Iodinated Contrast Media [IV Dye, Iodine Containing] Allergy (Severe, Verified 02/22/19 14:53) Difficulty breathing Shellfish * [Shellfish] Allergy (Severe, Verified 02/22/19 14:53) Difficulty breathing METAL Allergy (Severe, Uncoded 02/22/19 14:53) RASH Past Medical History - General Information source: Patient - Social History Smoking Status: Current Every Day Smoker Chew tobacco use (# tins/day): No Frequency of alcohol use: Occasional Drug Abuse: None Lives with: Family Family History: Reviewed & Not Pertinent Patient has suicidal ideation: No Patient has homicidal ideation: No - Past Medical History Cardiac Medical History: Denies: Hx Coronary Artery Disease, Hx Heart Attack, Hx Hypertension Pulmonary Medical History: Denies: Hx Asthma, Hx Bronchitis, Hx COPD, Hx Pneumonia Neurological Medical History: Reports: Hx Migraine. Denies: Hx Cerebrovascular Accident, Hx Seizures Renal/ Medical History: Denies: Hx Peritoneal Dialysis Musculoskeletal Medical History: Denies Hx Arthritis Psychiatric Medical History: Reports: Hx Bipolar Disorder, Hx Schizoaffective Disorder Past Surgical History: Reports: Hx Cholecystectomy, Hx Tubal Ligation - Immunizations Hx Diphtheria, Pertussis, Tetanus Vaccination: Yes Review of Systems - Review of Systems Constitutional: Chills, Diaphoresis, Fever EENT: No symptoms reported Cardiovascular: No symptoms reported Respiratory: No symptoms reported Gastrointestinal: Abdominal pain, Nausea, Vomiting Genitourinary: No symptoms reported Female Genitourinary: No symptoms reported Musculoskeletal: No symptoms reported Skin: No symptoms reported Hematologic/Lymphatic: No symptoms reported Neurological/Psychological: No symptoms reported -: Yes All other systems reviewed and negative Physical Exam - Vital signs Vitals: Temp Resp BP Pulse Ox 99.3 F 18 117/75 95 12/16/19 04:08 12/16/19 04:08 12/16/19 04:08 12/16/19 04:08 - Notes Notes: GENERAL: Well-appearing, well-nourished and in no acute distress. HEAD: Atraumatic, normocephalic. EYES: Pupils equal round and reactive to light, extraocular movements intact, sclera anicteric, conjunctiva are normal. ENT: TMs normal, nares patent, oropharynx clear without exudates. Moist mucous membranes. NECK: Normal range of motion, supple without lymphadenopathy or JVD. LUNGS: Breath sounds clear to auscultation bilaterally and equal. No wheezes rales or rhonchi. HEART: Regular rate and rhythm without murmurs, rubs or gallops. ABDOMEN: Soft, severe tenderness in RLQ, moderate tenderness in umbilical area, normoactive bowel sounds. No guarding, no rebound. No masses appreciated. EXTREMITIES: Normal range of motion, no pitting or edema. No clubbing or cyanosis. NEUROLOGICAL: Cranial nerves II through XII grossly intact. Normal speech, normal gait. PSYCH: Normal mood, normal affect. SKIN: Warm, Dry, normal turgor, no rashes or lesions noted. Course - Re-evaluation Re-evalutation: 12/16/19 06:22 The patient is here for sudden onset of RLQ abdominal pain and she has a WBC of nearly 17. The patient has not produced a UA as of yet and the read of her abdominal CT is still pending. Patient was given morphine and Zofran for pain and nausea. She apparently became very anxious in CT and thought she was having an allergic reaction but she had no hives, no wheezing, no rash, no throat swelling. Patient would not calm down for the CT scan so shew was given benadryl and valium. 12/16/19 06:[address] of the patient showed no acute process and specifically no appendicitis and no kidney stones. There was some trace pelvic fluid and the patient has had ruptured ovarian cysts in the past. Plan to check a UA to ensure no UTI prior to discharge. 12/16/19 07:28 UA not consistent with a UTI. Patient is safe for outpatient follow up with a PCP or [facility] - Vital Signs Vital signs: Temp Pulse Resp BP Pulse Ox 99.3 F 15 117/75 95 12/16/19 04:08 12/16/19 05:00 12/16/19 04:08 12/16/19 05:00 - Laboratory Result Diagrams: 12/16/19 04:15 12/16/19 04:15 Laboratory results interpreted by me: 12/16/19 12/16/19 12/16/19 04:15 04:15 06:33 WBC 16.9 H Lymph % (Auto) 12.5 L Absolute Neuts (auto) 13.7 H Seg Neutrophils % 81.2 H Chloride 110 H Carbon Dioxide 21 L Lipase 19.7 L Urine Protein 30 H Urine Blood SMALL H Urine Urobilinogen 2.0 H - Diagnostic Test Radiology reviewed: Image reviewed Discharge - Discharge Clinical Impression: Anxiety Abdominal pain Qualifiers: Abdominal location: right lower quadrant Qualified Code(s): R10.31 - Right lower quadrant pain Nausea & vomiting Qualifiers: Vomiting type: unspecified Vomiting Intractability: unspecified Qualified Code(s): R11.2 - Nausea with vomiting, unspecified Condition: Stable Disposition: HOME, SELF-CARE Instructions: Abdominal Pain ([facility]), Vomiting ([facility]) Additional Instructions: You came to the ER for sudden onset of right sided abdominal pain. You had blood work, a urine analysis, and a CT scan in the ER. Your CT scan showed no acute process but some free fluid in your pelvis which could be due to a ruptured ovarian cyst. Use Naproxen and Ultram for abdominal pain and use Zofran for nausea. Follow up with a primary care doctor or an [facility] [employer] Doctor and tell him/her about your ER visit. Prescriptions: Naproxen 500 mg PO BID PRN #14 tablet PRN Reason: Tramadol HCl [Ultram 50 mg Tablet] 50 mg PO Q8H PRN #10 tab PRN Reason: Ondansetron [Zofran Odt 4 mg Tablet] 1 tab PO Q8H PRN #10 tab.rapdis PRN Reason: For Nausea/Vomiting
[2019-12-16] MEDS ORDERED: DIPHENHYDRAMINE HCL 50 MG/ML VIAL ONE (05:19)
[2019-12-16] MEDS ORDERED: DIPHENHYDRAMINE HCL 50 MG/ML VIAL IV ONE (05:28)
[2019-12-16] MEDS ORDERED: DIAZEPAM INJ 10 MG/2 ML DISP.SYRIN IV ONE (05:28)
--- NOTE | 2019-12-16 06:23 | RADIOLOGY REPORT (SQ) ---
CT abdomen and pelvis without contrast on 12/16/2019 5:46 AM CLINICAL INDICATION: Acute onset right lower quadrant pain TECHNIQUE: Multiple axial images are obtained throughout the abdomen and pelvis without the administration of contrast. This exam was performed according to our departmental dose-optimization program, which includes automated exposure control, adjustment of the mA and/or kV according to patient size and/or use of iterative reconstruction technique. Total DLP is 629.14 mGy*cm. COMPARISON: 02/22/2019 FINDINGS: Abdomen: There is minimal bibasilar atelectasis. The patient is status post cholecystectomy. There are no renal or ureteral stones and no hydronephrosis. The unenhanced solid abdominal organs are unremarkable. There is no abdominal adenopathy. There is no free fluid or free air within the abdomen. The abdominal portion of the GI tract is unremarkable. Pelvis: Pelvic organs appear unremarkable by CT. Clips from bilateral tubal ligation are noted. Trace free fluid in the pelvis is likely physiologic. There is no pelvic adenopathy. The pelvic portion of the GI tract including the appendix is unremarkable. No bony abnormality is noted. IMPRESSION: No acute abnormality.
[2019-12-16 07:01] LABS: APPEARANCE,URINE SLIGHTLY-CLOUDY; BILIRUBIN,URINE NEGATIVE (NEGATIVE); COLOR,URINE AMBER; GLUCOSE, URINE NEGATIVE (NEGATIVE); KETONES,URINE NEGATIVE (NEGATIVE); LEUKOCYTE ESTERASE,URINE NEGATIVE (NEGATIVE); NITRITE,URINE NEGATIVE (NEGATIVE); PROTEIN,URINE 30 mg/dL (NEGATIVE); URINE SPECIFIC GRAVITY 1.029
[2019-12-16] MEDS ORDERED: TRAMADOL HCL 50 MG TABLET PO ONE (07:30)
[2019-12-16 08:12] VITALS: BP 117/66
== END 2019-12-16 08:22 | disposition home or self-care (01) ==
LOC: ER 04:03
DX: R10.31 Right lower quadrant pain (principal); R10.813 Right lower quadrant abdominal tenderness; R10.815 Periumbilic abdominal tenderness; R11.2 Nausea with vomiting, unspecified; R50.9 Fever, unspecified; F41.9 Anxiety disorder, unspecified; F17.200 Nicotine dependence, unspecified, uncomplicated; Z98.51 Tubal ligation status; Z90.49 Acquired absence of other specified parts of digestive tract; Z91.041 Radiographic dye allergy status; Z91.013 Allergy to seafood; Z91.048 Other nonmedicinal substance allergy status
CPT/HCPCS: 36415; 74176; 80053; 81001; 81025; 83690; 85025; 96361; 96374; 96375; 99284; J1200; J2270; J2405; J3360; J7030